=== PATIENT | female | born 1955 | race American Indian/Alaskan Native ===

== ENCOUNTER 2019-04-29 09:52 | Emergency (ER) | payer MEDICAID, OTHER ==
[2019-04-29 10:38] VITALS: BP 176/85
--- NOTE | 2019-04-29 10:48 | XRay Report ---
3 views of the left shoulder INDICATION / CLINICAL INFORMATION: pain. COMPARISON: None available. FINDINGS: BONES/JOINT(S): No acute fracture or subluxation. Mild AC joint DJD. SOFT TISSUES: No significant abnormality. ADDITIONAL FINDINGS: None. Signer Name: Maxwell Harris MD Signed: 04/29/2019 9:44 AM Workstation Name: [id number]
[2019-04-29] MEDS ORDERED: NAPROSYN PO ONE (11:40)
[2019-04-29] MEDS ORDERED: FLEXERIL PO ONE (11:40)
--- NOTE | 2019-04-29 11:45 | Emergency Department Report ---
Upper Extremity - HPI Chief Complaint: Extremity Injury, Upper Stated Complaint: CHEST PAINS Time Seen by Provider: 04/29/19 10:21 Other History: Patient is a 63-year-old female who presents to the emergency room with complaints of left shoulder pain that began 2 months ago. she states occasionally she has a tingling sensation in the fingers. She denies any weakness or chest pain. She denies any fall, injury, or trauma She states it's worse when she lays on it. She does not report any neck pain or back pain. PMHx of DM and HTN. she states her "blood pressure is usually higher than it is today." ED Review of Systems ROS: Stated complaint: CHEST PAINS Other details as noted in HPI Comment: All other systems reviewed and negative ED Past Medical Hx - Past Medical History Previous Medical History?: Yes Hx Hypertension: Yes Hx Diabetes: Yes - Surgical History Past Surgical History?: Yes Hx Cholecystectomy: Yes Additional Surgical History: knee sx, hysterectomy - Social History Smoking Status: Current Some Day Smoker Substance Use Type: Alcohol, Marijuana - Medications Home Medications: Home Medications Medication Instructions Recorded Confirmed Last Taken Type Naproxen [Naprosyn TAB] 500 mg PO TID PRN #14 tablet 04/29/19 Unknown Rx Upper Extremity Exam - Exam General: Vital signs noted. No distress. Alert and acting appropriately. Shoulder Exam: Yes Shoulder Tenderness (mild left posterior shoulder TTP), Yes Normal Range of Motion in Shoulder, No Clavicle Tenderness, No Shoulder Deformity, No AC Joint Tenderness Arm Exam: No Arm/Humerus Tenderness, No Arm Deformity Elbow: Yes Normal Range of Motion in Elbow, No Elbow Tenderness, No Elbow Deformity Forearm: No Forearm Tenderness, No Forearm Deformity, No Pain with Pronation, No Pain with Supination Wrist: Yes Normal ROM in Wrist, No Wrist Tenderness, No Wrist Deformity, No Snuffbox Tenderness, No Pain with Axial Thumb Compression Hand: Yes Normal ROM in Digit(s), No Hand Tenderness, No Hand Deformity, No Digit Tenderness, No Digit(s) Deformity, No Tendon Dysfunction CMS Exam: Yes Normal Distal Pulses, Yes Normal Capillary Refill, Yes Normal Distal Sensation, No Broken Skin ED Course Vital Signs 04/29/19 10:09 Temperature 97.9 F Pulse Rate 76 Respiratory 20 Rate Blood Pressure 176/85 [Right] O2 Sat by Pulse 100 Oximetry ED Medical Decision Making - Radiology Data Radiology results: report reviewed Fluoro Time In Minutes: 3 views of the left shoulder INDICATION / CLINICAL INFORMATION: pain. COMPARISON: None available. FINDINGS: BONES/JOINT(S): No acute fracture or subluxation. Mild AC joint DJD. SOFT TISSUES: No significant abnormality. ADDITIONAL FINDINGS: None. Signer Name: Maxwell Harris MD Signed: 04/29/2019 9:44 AM Workstation Name: [id number] Transcribed By: REF Dictated By: EM OSEGUERA MD Electronically Authenticated By: EM OSEGUERA MD Signed Date/Time: 04/29/19 0944 - Medical Decision Making Patient is a 63-year-old female who presents to the emergency room with complaints of left shoulder pain that began 2 months ago. she states occasionally she has a tingling sensation in the fingers. She denies any weakness or chest pain. She denies any fall, injury, or trauma She states it's worse when she lays on it. She does not report any neck pain or back pain. PMHx of DM and HTN. she states her "blood pressure is usually higher than it is today." on exam: mild left posterior shoulder TTP, FROM of the left shoulder, neurovascular intact, no sulcus sign, clavicles are equal, no joint laxity, no AC joint tenderness. pt discomfort treated while in the ED. XR of the shoulder shows No acute fracture or subluxation. Mild AC joint DJD. pt given prescription for naproxen. advised to \\please take medication as prescribed as needed. may use ice, rest, heat, epsom salt bath. Follow up with a primary care doctor in the next 2-3 days. discuss with your primary care doctor the elevation in your blood pressure. Return to the emergency room for any new or worsening symptoms. - Differential Diagnosis strain, sprain, fx, dislocation, DJD, arthritis Critical care attestation.: If time is entered above; I have spent that time in minutes in the direct care of this critically ill patient, excluding procedure time. ED Disposition Clinical Impression: Elevated blood pressure reading Left shoulder pain Qualifiers: Chronicity: acute Qualified Code(s): M25.512 - Pain in left shoulder Disposition: DC-01 TO HOME OR SELFCARE Is pt being admited?: No Does the pt Need Aspirin: No Condition: Stable Instructions: Osteoarthritis (ED) Additional Instructions: Please take medication as prescribed as needed. may use ice, rest, heat, epsom salt bath. Follow up with a primary care doctor in the next 2-3 days. discuss with your primary care doctor the elevation in your blood pressure. Return to the emergency room for any new or worsening symptoms. Prescriptions: Naproxen [Naprosyn TAB] 500 mg PO TID PRN #14 tablet PRN Reason: Pain, Moderate (4-6) Referrals: GREGORY THOMPSON MD [Primary Care Provider] - 2-3 Days Time of Disposition: 11:46 Print Language: CYMRAES
== END 2019-04-29 12:03 | disposition home or self-care (01) ==
LOC: ED 09:52
DX: M25.512 Pain in left shoulder (principal); I10 Essential (primary) hypertension; E11.9 Type 2 diabetes mellitus without complications; F17.200 Nicotine dependence, unspecified, uncomplicated; F12.10 Cannabis abuse, uncomplicated; Z90.710 Acquired absence of both cervix and uterus; Z90.49 Acquired absence of other specified parts of digestive tract; Z88.2 Allergy status to sulfonamides
CPT/HCPCS: 99283

== ENCOUNTER 2019-05-02 21:53 | Emergency (ER) | payer SELFPAY ==
[2019-05-02 23:02] VITALS: BP 183/90
== END 2019-05-03 03:00 | disposition left against medical advice (07) ==
LOC: ED 21:53
DX: M79.602 Pain in left arm (principal); Z53.21 Procedure and treatment not carried out due to patient leaving prior to being seen by health care provider
CPT/HCPCS: 93005; 93010

== ENCOUNTER 2021-04-13 05:01 | Observation (INO) | payer MEDICAID, MEDICARE ==
[2021-04-13] MEDS ORDERED: ASPIRIN 325 MG TAB PO ONE (05:49)
[2021-04-13 06:01] LABS: Basophils # (Auto) 0.1 K/mm3 (0.0-0.1); Basophils % (Auto) 0.7 % (0.0-1.8); Eosinophils # (Auto) 0.4 K/mm3 (0.0-0.4); Eosinophils % (Auto) 3.4 % (0.0-4.3); Hemoglobin 11.3 gm/dl (10.1-14.3); Lymphocytes # (Auto) 1.8 K/mm3 (1.2-5.4); Lymphocytes % (Auto) 17.4 % (13.4-35.0); Mean Corpuscular HGB Conc 35 % (30-34); Mean Corpuscular Volume 95 fl (79-97); Monocytes # (Auto) 0.7 K/mm3 (0.0-0.8); Monocytes % (Auto) 6.9 % (0.0-7.3); Platelet Count 344 K/mm3 (140-440); Red Blood Count 3.35 M/mm3 (3.65-5.03)
[2021-04-13] MEDS ORDERED: DOXYCYCLINE 100 MG CAP PO ONE (06:17)
[2021-04-13] MEDS ORDERED: ACETAMINOPHEN 500 MG TAB PO ONE (06:17)
[2021-04-13] MEDS ORDERED: IPRATROPIUM/ALBUTEROL SULFATE 3 ML AMPUL.NEB IH ONE (06:17)
--- NOTE | 2021-04-13 06:23 | Emergency Department Report ---
ED Shortness of Breath HPI - General Chief Complaint: Chest Pain Stated Complaint: SOB/CP/SPITTING BLOOD/POST COVID VACCINE Time Seen by Provider: 04/13/21 06:10 Source: patient Mode of arrival: Ambulatory Limitations: No Limitations - History of Present Illness Initial Comments: Chief complaint: Palpitations, productive cough, generalized pain body ache after taking Covid vaccine " I just feel so bad." HPI: This is a 65-year-old female with history of pancreatitis, hypertension, diabetes mellitus, CHF asthma/bronchitis, tobacco dependence who presents with shortness of breath productive cough, generalized body pain after Covid vaccine last . Symptoms became worse last night. 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 She has mild to moderate headache. She denies loss of taste or smell. She has had good appetite. Patient's body pain is severe and diffuse. Patient's cough is productive with yellow bloody sputum. She also has subjective fever and chills. She lives with family members. No sick contacts known. Last was the first vaccine dose of Moderna. Started new job last Saturday. Patient is a former 1 pack/day smoker. She currently smokes 2 cigarettes/day. Home albuterol nebulizer did not provide any relief of her symptoms. PCP Daniel LANG Complaint: shortness of breath, cough, anxiety (Fever chills generalized body aches) -: Gradual, days(s) (Several days ago worse last night) Severity: moderate Quality: aching Consistency: constant Improves With: oxygen Worsens With: nothing Known History Of: asthma Associated Symptoms: fever, cough, sputum production - Related Data Home Medications Medication Instructions Recorded Confirmed Last Taken Multivitamin [One-Daily 1 each PO QDAY 04/13/21 04/13/21 Unknown Multi-Vitamin] Oxycodone HCl/Acetaminophen 1 each PO Q6HR PRN 04/13/21 04/13/21 Unknown [Percocet 7.5/325 mg] Sertraline [Zoloft] 50 mg PO QDAY 04/13/21 04/13/21 Unknown Simvastatin 40 mg PO QHS 04/13/21 04/13/21 Unknown Ubidecarenone [Coenzyme Q-10] 200 mg PO QDAY 04/13/21 04/13/21 Unknown hydroCHLOROthiazide [HCTZ] 25 mg PO QDAY 04/13/21 04/13/21 Unknown labetaloL [Labetalol 200mg TAB] 200 mg PO BID 04/13/21 04/13/21 Unknown Previous Rx's Medication Instructions Recorded Last Taken Type Albuterol Sulfate [Proventil Hfa] 6.7 gm IH Q4H PRN #1 hfa.aer.ad 04/14/21 Unknown Rx Montelukast [Singulair] 10 mg PO QHS #30 tablet 04/14/21 Unknown Rx methylPREDNISolone [Medrol 4MG 4 mg PO DAILY #1 tab.ds.pk 04/14/21 Unknown Rx DOSEPAK (21 tabs)] oxyCODONE /ACETAMINOPHEN [Percocet 1 tab PO Q6H PRN #14 tablet 04/14/21 Unknown Rx 5/325 mg] Allergies Allergy/AdvReac Type Severity Reaction Status Date / Time Sulfa (Sulfonamide Allergy Swelling Verified 04/29/19 10:09 Antibiotics) ED Review of Systems ROS: Stated complaint: SOB/CP/SPITTING BLOOD/POST COVID VACCINE Other details as noted in HPI Comment: All other systems reviewed and negative Constitutional: chills, fever ENT: denies: throat pain Respiratory: cough, shortness of breath Cardiovascular: denies: chest pain Gastrointestinal: denies: abdominal pain, nausea, vomiting ED Past Medical Hx - Past Medical History Previous Medical History?: Yes Hx Hypertension: Yes Hx Congestive Heart Failure: Yes (december 2018) Hx Diabetes: Yes Additional medical history: pancreatitis 2017 - Surgical History Past Surgical History?: Yes Hx Cholecystectomy: Yes Additional Surgical History: knee sx, hysterectomy - Family History Family history: hypertension - Social History Smoking Status: Heavy Tobacco Smoker Substance Use Type: None - Medications Home Medications: Home Medications Medication Instructions Recorded Confirmed Last Taken Type Multivitamin [One-Daily 1 each PO QDAY 04/13/21 04/13/21 Unknown History Multi-Vitamin] Oxycodone HCl/Acetaminophen 1 each PO Q6HR PRN 04/13/21 04/13/21 Unknown History [Percocet 7.5/325 mg] Sertraline [Zoloft] 50 mg PO QDAY 04/13/21 04/13/21 Unknown History Simvastatin 40 mg PO QHS 04/13/21 04/13/21 Unknown History Ubidecarenone [Coenzyme Q-10] 200 mg PO QDAY 04/13/21 04/13/21 Unknown History hydroCHLOROthiazide [HCTZ] 25 mg PO QDAY 04/13/21 04/13/21 Unknown History labetaloL [Labetalol 200mg TAB] 200 mg PO BID 04/13/21 04/13/21 Unknown History Albuterol Sulfate [Proventil Hfa] 6.7 gm IH Q4H PRN #1 hfa.aer.ad 04/14/21 Unknown Rx Montelukast [Singulair] 10 mg PO QHS #30 tablet 04/14/21 Unknown Rx methylPREDNISolone [Medrol 4MG 4 mg PO DAILY #1 tab.ds.pk 04/14/21 Unknown Rx DOSEPAK (21 tabs)] oxyCODONE /ACETAMINOPHEN [Percocet 1 tab PO Q6H PRN #14 tablet 04/14/21 Unknown Rx 5/325 mg] ED Physical Exam - General Limitations: No Limitations General appearance: alert, anxious, other (Speaking full word sentences with significant effort, appears ill ) - Head Head exam: Present: atraumatic, normocephalic - Eye Eye exam: Present: normal appearance - ENT ENT exam: Present: mucous membranes moist - Neck Neck exam: Present: normal inspection, full ROM - Respiratory Respiratory exam: Present: rales (Diffuse fine rales), other (Rapid breathing 28 breaths/min). Absent: wheezes, rhonchi, stridor, accessory muscle use, decreased breath sounds, prolonged expiratory - Cardiovascular Cardiovascular Exam: Present: normal rhythm, tachycardia. Absent: systolic murmur, diastolic murmur, rubs, gallop - GI/Abdominal GI/Abdominal exam: Present: soft, normal bowel sounds. Absent: distended, tenderness, guarding, rebound - Extremities Exam Extremities exam: Present: normal inspection - Neurological Exam Neurological exam: Present: alert, oriented X3 - Psychiatric Psychiatric exam: Present: normal affect, anxious - Skin Skin exam: Present: warm, dry, intact, normal color. Absent: rash ED Course Vital Signs 04/13/21 04/13/21 04/13/21 05:42 06:16 06:24 Temperature 98.4 F Pulse Rate 109 H 104 H 108 H Pulse Rate [ Bilateral] Respiratory 20 22 Rate Respiratory Rate [Bilateral ] Blood Pressure 238/121 238/119 Blood Pressure 238/119 [Left] O2 Sat by Pulse 100 96 Oximetry 0604/13/21 04/13/21 06:36 07:00 08:00 Temperature Pulse Rate 84 Pulse Rate [ 85 Bilateral] Respiratory 35 H Rate Respiratory 22 Rate [Bilateral ] Blood Pressure 223/115 205/109 Blood Pressure [Left] O2 Sat by Pulse 96 87 Oximetry 04/13/21 04/13/21 04/13/21 08:30 08:46 09:16 Temperature Pulse Rate 86 81 81 Pulse Rate [ Bilateral] Respiratory 21 12 19 Rate Respiratory Rate [Bilateral ] Blood Pressure 213/94 210/99 208/93 Blood Pressure [Left] O2 Sat by Pulse 96 97 91 Oximetry 04/13/21 04/13/21 04/13/21 09:30 09:46 10:16 Temperature Pulse Rate 78 81 80 Pulse Rate [ Bilateral] Respiratory 23 19 19 Rate Respiratory Rate [Bilateral ] Blood Pressure 217/103 217/103 188/85 Blood Pressure [Left] O2 Sat by Pulse 97 93 90 Oximetry 04/13/21 04/13/21 04/13/21 10:46 11:00 11:10 Temperature Pulse Rate 77 75 76 Pulse Rate [ Bilateral] Respiratory 20 19 19 Rate Respiratory Rate [Bilateral ] Blood Pressure 181/90 186/89 186/89 Blood Pressure [Left] O2 Sat by Pulse 94 95 95 Oximetry 04/13/21 12:16 Temperature 98.3 F Pulse Rate 80 Pulse Rate [ Bilateral] Respiratory 20 Rate Respiratory Rate [Bilateral ] Blood Pressure 180/86 Blood Pressure [Left] O2 Sat by Pulse 92 Oximetry ED Medical Decision Making - Lab Data Result diagrams: 04/13/21 05:53 04/14/21 07:15 - EKG Data -: EKG Interpreted by Nh EKG shows normal: sinus rhythm, axis, intervals Rate: tachycardia - EKG Data Interpretation: nonspecific ST-T wave kallie, LVH 04/13/21 06:22 EKG obtained 0533 EKG interpreted by md Sinus tachycardia rate 110 bpm normal axis prolonged QTC positive LVH nonischemic T wave pattern no significant ST elevation - Radiology Data Radiology results: report reviewed Patient Name: BRIAN KRAUS Gender: Female Date of : 1955 Referring Provider: JESSE KNIGHT Organization: [facility] Accession Number: [id number] Requested Date: April 13, 2021 05:49 Report Status: Final Requested Procedure: 1 Procedure Description: XR chest 1V ap Modality: XR Findings Reporting MD: Genesis Alvarez Dictation Time: April 13, 2021 05:34 Core Feeder: Not available Solution Developer Date: CHEST 1 VIEW, 04/13/2021 5:59 AM CLINICAL INFORMATION/INDICATION: Chest pain COMPARISON: None. FINDINGS: SUPPORT DEVICES: None. HEART: The cardiac silhouette is moderately enlarged. LUNGS/PLEURA: There are faint bilateral patchy pulmonary opacities, right slightly greater than left. No large pleural effusion is visualized. ADDITIONAL FINDINGS: No additional acute findings. IMPRESSION: 1. Patchy bilateral pulmonary opacities. Diagnostic considerations would include early pulmonary edema or atypical infectious process. 2. Enlargement of the cardiac silhouette. Signer Name: Genesis Alvarez MD Signed: 04/13/2021 5:34 AM Workstation Name: [id number] - Medical Decision Making 1. Suspected Covid 19 infection, multifocal pneumonia: Patient received IV ceftriaxone and p.o. doxycycline emergency department. Also received IV Decadron. PUI contact and droplet precautions instituted in emergency department. Ferritin and CRP within normal limits D-dimer elevated 2. Hypertensive urgency, rebound hypertension due to missed Clonidine dose, addressed with p.o. labetalol no evidence of end organ damage, 3. History of CHF, elevated BNP without baseline to compare. Patient does have infectious symptoms such as fever chills productive cough, body aches. I feel that her presentation reveals an infectious etiology more so than cardiac. - Differential Diagnosis CHF exacerbation, bacterial pneumonia, acute bronchitis/COPD exacerbation Critical care attestation.: If time is entered above; I have spent that time in minutes in the direct care of this critically ill patient, excluding procedure time. ED Disposition Clinical Impression: Multifocal pneumonia, Suspected COVID-19 virus infection, Hypertensive urgency Disposition: OP ADMIT IP TO THIS HOSP Is pt being admited?: Yes Does the pt Need Aspirin: No Condition: Stable
[2021-04-13 06:26] LABS: Albumin 4.2 g/dL (3.9-5); Calcium 9.4 mg/dL (8.4-10.2)
--- NOTE | 2021-04-13 06:38 | XRay Report ---
CHEST 1 VIEW, 04/13/2021 5:59 AM CLINICAL INFORMATION/INDICATION: Chest pain COMPARISON: None. FINDINGS: SUPPORT DEVICES: None. HEART: The cardiac silhouette is moderately enlarged. LUNGS/PLEURA: There are faint bilateral patchy pulmonary opacities, right slightly greater than left. No large pleural effusion is visualized. ADDITIONAL FINDINGS: No additional acute findings. IMPRESSION: 1. Patchy bilateral pulmonary opacities. Diagnostic considerations would include early pulmonary jose luis a or atypical infectious process. 2. Enlargement of the cardiac silhouette. Signer Name: Genesis Alvarez MD Signed: 04/13/2021 6:34 AM Workstation Name: [id number]
[2021-04-13] MEDS ORDERED: FLUCONAZOLE 200 MG TAB PO ONE (06:49)
[2021-04-13] MEDS ORDERED: cefTRIAXone/NS 1 GM/50 ML 1 GM/50 ML BAG IV ONE (06:56)
[2021-04-13] MEDS ORDERED: dexAMETHasone 20 MG/5 ML VIAL IV ONE (07:01)
[2021-04-13] MEDS ORDERED: IBUPROFEN 800 MG TAB PO ONE (07:32)
[2021-04-13] MEDS ORDERED: cloNIDine 0.2 MG TAB PO ONE (08:11)
[2021-04-13 09:06] LABS: C-Reactive Protein 1.1 mg/dL (0.00-1.30)
[2021-04-13] MEDS ORDERED: MORPHINE 4 MG/1 ML INJ IV ONE (09:14)
[2021-04-13] MEDS ORDERED: ONDANSETRON 4 MG/2 ML INJ IV ONE (09:14)
[2021-04-13] MEDS ORDERED: NON-FORMULARY EACH (Oxycodone Hcl/Acetaminophen [Percocet 7.5/325 Mg] 1 EACH Tablet) PO PRN (10:30)
[2021-04-13] MEDS ORDERED: DEXTROSE 50% IN WATER (25GM) 50 ML SYRINGE IV PRN (10:31)
[2021-04-13] MEDS ORDERED: ALBUTEROL 2.5 MG/3 ML NEBU IH PRN (10:32)
--- NOTE | 2021-04-13 10:54 | History and Physical Report ---
History of Present Illness Date of examination: 04/13/21 Date of admission: 04/13/21 09:11 Chief complaint: Shortness of breath History of present illness: 65-year-old -[place] female with past medical history significant for hypertension, diabetes mellitus, asthma, tobacco use presented to the emergency department with complaints of shortness of breath that started a week ago after she took her Covid shot. Shortness of breath is progressively getting worse and for the past 2 days patient was not able to breath and presented to the emergency department. Patient said she was taking her albuterol inhaler without improvement. Patient states she has cough which is productive of blood mixed with sputum. Patient denied any fever, chills, or chest pain. In the emergency department patient's blood pressure was uncontrolled, patient had elevated D-dimer, patient has abnormal chest x-ray. Patient was started with IV antibiotics, IV Solu-Medrol, nebulizer treatment. CTA chest ordered, Doppler ultrasound of the lower extremities ordered. ID was consulted and patient admitted to the floor. COVID-19 test ordered. REVIEW OF SYSTEMS: GENERAL: no weight change, no fatigue, no fever HEAD: no head ache EYES: no blurry vision, no acute visual loss EARS: no hearing loss, no discharge, no earache NOSE: no stuffiness, no sneezing, no discharge MOUTH, THROAT AND NECK: no bleeding gums, no sore throat, no swollen neck CARDIAC: As stated in HPI. RESPIRATORY: As stated in HPI. GI: no decreased appetite, no nausea, no vomiting, no dysphagia, no diarrhea, no constipation, no abdominal pain URINARY: No urgency, hematuria, dysuria or frequency. MUSCULOSKELETAL: no muscle weakness, no pain, no joint stiffness NEUROLOGIC: no loss of sensation/numbness, no tingling, no tremors, no weakness/paralysis HEMATOLOGIC: no anemia, no easy bruising SKIN: no rashes ENDOCRINE: no heat/cold intolerance, no polyuria, no polydipsia, no thyroid problems PSYCHIATRIC: no anxiety, no depression, no suicidal ideations Past History Past Medical History: arthritis, diabetes, hypertension Past Surgical History: hysterectomy, total knee replacement Social history: smoking (Daily smoker), full code. denies: alcohol abuse, prescription drug abuse, IV drug use Family history: diabetes, hypertension Medications and Allergies Allergies Allergy/AdvReac Type Severity Reaction Status Date / Time Sulfa (Sulfonamide Allergy Swelling Verified 04/29/19 10:09 Antibiotics) Home Medications Medication Instructions Recorded Confirmed Last Taken Type Multivitamin [One-Daily 1 each PO QDAY 04/13/21 04/13/21 Unknown History Multi-Vitamin] Oxycodone HCl/Acetaminophen 1 each PO Q6HR PRN 04/13/21 04/13/21 Unknown History [Percocet 7.5/325 mg] Sertraline [Zoloft] 50 mg PO QDAY 04/13/21 04/13/21 Unknown History Simvastatin 40 mg PO QHS 04/13/21 04/13/21 Unknown History Ubidecarenone [Coenzyme Q-10] 200 mg PO QDAY 04/13/21 04/13/21 Unknown History hydroCHLOROthiazide [HCTZ] 25 mg PO QDAY 04/13/21 04/13/21 Unknown History labetaloL [Labetalol 200mg TAB] 200 mg PO BID 04/13/21 04/13/21 Unknown History Active Meds: Active Medications Albuterol (Albuterol 2.5 Mg/3 Ml Nebu) 2.5 mg IH Q4HRT PRN PRN Reason: Shortness Of Breath Clonidine HCl (Clonidine 0.2 Mg Tab) 0.2 mg PO Q12HR ROSLYN Dextrose (Dextrose 50% In Water (25gm) 50 Ml Syringe) 50 ml IV Q30MIN PRN; Protocol PRN Reason: Hypoglycemia Hydrochlorothiazide (Hydrochlorothiazide 25 Mg Tab) 25 mg PO QDAY ROSLYN Ceftriaxone Sodium (Rocephin/Ns 2 Gm/100 Ml) 2 gm in 100 mls @ 200 mls/hr IV Q24H ROSLYN; Protocol Azithromycin (Zithromax/Ns) 500 mg in 250 mls @ 250 mls/hr IV Q24H ROSLYN Insulin Glargine (Insulin Glargine 100 Units/Ml) 30 units SUB-Q BID ROSLYN Labetalol HCl (Labetalol 200 Mg Tab) 200 mg PO BID ROSLYN Methylprednisolone Sodium Succinate (Methylprednisolone Sod Succinate 125 Mg/2 Ml Inj) 60 mg IV Q8HR ROSLYN Miscellaneous Medication (Simvastatin [Simvastatin]) 40 mg PO QHS [facility] Miscellaneous Medication (Oxycodone Hcl/Acetaminophen [Percocet 7.5/325 Mg]) 1 each PO Q6HR PRN PRN Reason: PAIN Montelukast Sodium (Montelukast 10 Mg Tab) 10 mg PO QHS ROSLYN Nicotine (Nicotine 21 Mg/24 Hr Patch) 21 mg TD QDAY ROSLYN Sertraline HCl (Sertraline 50 Mg Tab) 50 mg PO QDAY ROSLYN Exam - Physical Exam Narrative exam: Not in cardiopulmonary distress. The patient appeared well nourished and normally developed. Vital signs as documented. Head exam is unremarkable. No scleral icterus . Neck is without jugular venous distension, thyromegaly, or carotid bruits. Lungs are clear to auscultation. Cardiac exam reveals regular rate and Rhythm. Abdominal exam reveals normal bowel sounds, nontender, no organomegaly. Extremities are nonedematous and both femoral and pedal pulses are normal. [employer]: Alert and oriented 3. No focal weakness. - Constitutional Vitals: Temp Pulse Resp BP Pulse Ox 98.4 F 81 19 208/93 91 04/13/21 05:42 04/13/21 09:16 04/13/21 09:16 04/13/21 09:16 04/13/21 09:16 HEART Score - HEART Score Troponin: Troponin T 0.014 ng/mL (0.00-0.029) 04/13/21 05:53 Results - Labs CBC & Chem 7: 04/13/21 05:53 04/13/21 07:15 Labs: Laboratory Last Values WBC 10.5 K/mm3 (4.5-11.0) 04/13/21 05:53 RBC 3.35 M/mm3 (3.65-5.03) L 04/13/21 05:53 Hgb 11.3 gm/dl (10.1-14.3) 04/13/21 05:53 Hct 32.0 % (30.3-42.9) 04/13/21 05:53 MCV 95 fl (79-97) 04/13/21 05:53 MCH 34 pg (28-32) H 04/13/21 05:53 MCHC 35 % (30-34) H 04/13/21 05:53 RDW 15.0 % (13.2-15.2) 04/13/21 05:53 Plt Count 344 K/mm3 (140-440) 04/13/21 05:53 Lymph % (Auto) 17.4 % (13.4-35.0) 04/13/21 05:53 [place] % (Auto) 6.9 % (0.0-7.3) 04/13/21 05:53 Eos % (Auto) 3.4 % (0.0-4.3) 04/13/21 05:53 Baso % (Auto) 0.7 % (0.0-1.8) 04/13/21 05:53 Lymph # (Auto) 1.8 K/mm3 (1.2-5.4) 04/13/21 05:53 [place] # (Auto) 0.7 K/mm3 (0.0-0.8) 04/13/21 05:53 Eos # (Auto) 0.4 K/mm3 (0.0-0.4) 04/13/21 05:53 Baso # (Auto) 0.1 K/mm3 (0.0-0.1) 04/13/21 05:53 Seg Neutrophils % 71.6 % (40.0-70.0) H 04/13/21 05:53 Seg Neutrophils # 7.5 K/mm3 (1.8-7.7) 04/13/21 05:53 D-Dimer 1820.81 ng/mlDDU (0-234) H 04/13/21 07:15 Sodium 144 mmol/L (137-145) 04/13/21 05:53 Potassium 4.0 mmol/L (3.6-5.0) 04/13/21 05:53 Chloride 105.3 mmol/L (98-107) 04/13/21 05:53 Carbon Dioxide 28 mmol/L (22-30) 04/13/21 05:53 Anion Gap 15 mmol/L 04/13/21 05:53 BUN 15 mg/dL (7-17) 04/13/21 05:53 Creatinine 1.2 mg/dL (0.6-1.2) 04/13/21 05:53 Estimated GFR 55 ml/min 04/13/21 05:53 BUN/Creatinine Ratio 13 % 04/13/21 05:53 Glucose 178 mg/dL (65-100) H 04/13/21 07:15 Calcium 9.4 mg/dL (8.4-10.2) 04/13/21 05:53 Ferritin 167.8 ng/mL (10.0-200.0) 04/13/21 07:15 Total Bilirubin 0.50 mg/dL (0.1-1.2) 04/13/21 05:53 AST 22 units/L (5-40) 04/13/21 05:53 ALT 16 units/L (7-56) 04/13/21 05:53 Alkaline Phosphatase 88 units/L (35-129) 04/13/21 05:53 Lactate Dehydrogenase 300 units/L (91-180) H 04/13/21 07:15 Troponin T 0.014 ng/mL (0.00-0.029) 04/13/21 05:53 C-Reactive Protein 1.10 mg/dL (0.00-1.30) 04/13/21 07:15 NT-Pro-B Natriuret Pep 3520 pg/mL (0-900) H 04/13/21 07:15 Total Protein 6.9 g/dL (6.3-8.2) 04/13/21 05:53 Albumin 4.2 g/dL (3.9-5) 04/13/21 05:53 Albumin/Globulin Ratio 1.6 % 04/13/21 05:53 Assessment and Plan Assessment and plan: Acute respiratory failure -Patient was placed on Solu-Medrol, nebulizer treatment and oxygen support -We will continue to monitor Asthma exacerbation -Management as stated above Covid pneumonia versus bacterial pneumonia -Patient is on IV antibiotics -IV Solu-Medrol -ID consulted Elevated D-dimer -CTA chest and bilateral Doppler ultrasound of the lower extremities ordered Hypertensive urgency -Patient placed back on her home medications including clonidine Diabetes mellitus -Resume home dose of Lantus 30 units twice daily -Sliding scale insulin, ADA diet and adjust insulin as needed History of CHF -We will do echo DVT prophylaxis; on Lovenox CODE STATUS; full Disposition; admit to medical floor. Management plan was discussed with the patient and was in agreement with the plan of care. Advance Directives: Yes VTE prophylaxis?: Chemical Plan of care discussed with patient/family: Yes
[2021-04-13] MEDS ORDERED: cefTRIAXone/NS 2 GM/100 ML 2 GM/100 ML BAG IV SCH (11:00)
--- NOTE | 2021-04-13 11:47 | Consultation ---
History of Present Illness - Reason for Consult Consult date: 04/13/21 - History of Present Illness 55-year-old female past medical history hypertension, diabetes, asthma presented to hospital complaining of shortness of breath. She reports this began approximate week prior after receiving her Covid shot. Shortness of breath has been getting progressively worse, as as she presented to the hospital. She also complained of productive cough with bloody sputum. Otherwise denies any fevers, chills, chest pain. Afebrile since admission with a white count of 10.5. Covid PCR pending. Keke mated GFR is 55, pending procalcitonin. Normal inflammatory markers. No cultures available for review. She is currently on ceftriaxone and azithromycin. Imaging personally reviewed: Chest CTA: Patchy bilateral pulmonary opacities, edema versus infection. Review of systems: Deferred to reduce to the risk of transmission of COVID-19 Past History Past Medical History: arthritis, diabetes, hypertension Past Surgical History: hysterectomy, total knee replacement Social history: smoking (Daily smoker), full code. denies: alcohol abuse, prescription drug abuse, IV drug use Family history: diabetes, hypertension Medications and Allergies Allergies Allergy/AdvReac Type Severity Reaction Status Date / Time Sulfa (Sulfonamide Allergy Swelling Verified 04/29/19 10:09 Antibiotics) Home Medications Medication Instructions Recorded Confirmed Last Taken Type Multivitamin [One-Daily 1 each PO QDAY 04/13/21 04/13/21 Unknown History Multi-Vitamin] Oxycodone HCl/Acetaminophen 1 each PO Q6HR PRN 04/13/21 04/13/21 Unknown History [Percocet 7.5/325 mg] Sertraline [Zoloft] 50 mg PO QDAY 04/13/21 04/13/21 Unknown History Simvastatin 40 mg PO QHS 04/13/21 04/13/21 Unknown History Ubidecarenone [Coenzyme Q-10] 200 mg PO QDAY 04/13/21 04/13/21 Unknown History hydroCHLOROthiazide [HCTZ] 25 mg PO QDAY 04/13/21 04/13/21 Unknown History labetaloL [Labetalol 200mg TAB] 200 mg PO BID 04/13/21 04/13/21 Unknown History Active Meds: Active Medications Albuterol (Albuterol 2.5 Mg/3 Ml Nebu) 2.5 mg IH Q4HRT PRN PRN Reason: Shortness Of Breath Clonidine HCl (Clonidine 0.2 Mg Tab) 0.2 mg PO Q12HR ROSLYN Dextrose (Dextrose 50% In Water (25gm) 50 Ml Syringe) 50 ml IV Q30MIN PRN; Protocol PRN Reason: Hypoglycemia Enoxaparin Sodium (Enoxaparin 40 Mg/0.4 Ml Inj) 40 mg SUB-Q QDAY@2200 ROSLYN; Protocol Hydrochlorothiazide (Hydrochlorothiazide 25 Mg Tab) 25 mg PO QDAY ROSLYN Ceftriaxone Sodium (Rocephin/Ns 2 Gm/100 Ml) 2 gm in 100 mls @ 200 mls/hr IV Q24H ROSLYN; Protocol Azithromycin (Zithromax/Ns) 500 mg in 250 mls @ 250 mls/hr IV Q24H ROSLYN Insulin Glargine (Insulin Glargine 100 Units/Ml) 30 units SUB-Q BID ROSLYN Labetalol HCl (Labetalol 200 Mg Tab) 200 mg PO BID ROSLYN Methylprednisolone Sodium Succinate (Methylprednisolone Sod Succinate 125 Mg/2 Ml Inj) 60 mg IV Q8HR ROSLYN Miscellaneous Medication (Simvastatin [Simvastatin]) 40 mg PO QHS ROSLYN Miscellaneous Medication (Oxycodone Hcl/Acetaminophen [Percocet 7.5/325 Mg]) 1 each PO Q6HR PRN PRN Reason: PAIN Montelukast Sodium (Montelukast 10 Mg Tab) 10 mg PO QHS ROSLYN Nicotine (Nicotine 21 Mg/24 Hr Patch) 21 mg TD QDAY ROSLYN Sertraline HCl (Sertraline 50 Mg Tab) 50 mg PO QDAY ROSLYN Physical Examination - Physical Exam Narrative exam: Physical exam deferred to reduce risk of transmission of COVID-19. Please refer to primary team's note. - Constitutional Vitals: Vital Signs Temp Pulse Resp BP Pulse Ox 98.4 F 75 19 186/89 95 04/13/21 05:42 04/13/21 11:00 04/13/21 11:00 04/13/21 11:00 04/13/21 11:00 Temperature -Last 24 Hours Temperature 98.4 F Results - Labs CBC & Chem 7: 04/13/21 05:53 04/13/21 07:15 Labs: Abnormal lab results 04/13/21 04/13/21 04/13/21 Range/Units 05:53 05:53 07:15 RBC 3.35 L (3.65-5.03) M/mm3 MCH 34 H (28-32) pg MCHC 35 H (30-34) % Seg Neutrophils % 71.6 H (40.0-70.0) % D-Dimer 1820.81 H (0-234) ng/mlDDU Glucose 168 H (65-100) mg/dL Lactate Dehydrogenase (91-180) units/L NT-Pro-B Natriuret Pep (0-900) pg/mL 04/13/21 04/13/21 Range/Units 07:15 07:15 RBC (3.65-5.03) M/mm3 MCH (28-32) pg MCHC (30-34) % Seg Neutrophils % (40.0-70.0) % D-Dimer (0-234) ng/mlDDU Glucose 178 H (65-100) mg/dL Lactate Dehydrogenase 300 H (91-180) units/L NT-Pro-B Natriuret Pep 3520 H (0-900) pg/mL Assessment and Plan Cultures: Covid PCR: Pending A/P: 65 yo Female past medical history hypertension, diabetes presented to hospital as Covid PUI. #Covid PUI: Normal inflammatory markers, episodes of hypoxia. Moderate suspicion. Received first dose Covid testing last week approximately the time of symptom onset. May have been infected prior to receiving medication. Await PCR. #Shortness of breath: Pulmonary edema versus infection. Elevated BNP with nonspecific chest x-ray findings. Elevated D-dimer, awaiting chest CTA. #Diabetes: tight glycemic control for best outcomes. Recs: -Follow-up Covid PCR -If positive will start remdesivir -Follow-up procalcitonin, if less than 0.25 can stop antibiotics -Follow-up chest CTA. Thank you for the consult, we will continue to follow. Natalie Badillo MD [facility] ([facility] O: [phone] F: [phone]
[2021-04-13] MEDS: SERTRALINE 50 MG TAB PO SCH (12:32)
[2021-04-13] MEDS: hydroCHLOROthiazide 25 MG TAB PO SCH (12:32)
[2021-04-13] MEDS ORDERED: AZITHROMYCIN/NS 500 MG/250 ML 500 MG/250 ML BAG IV SCH (13:00)
--- NOTE | 2021-04-13 13:21 | Cat Scan Report ---
CTA CHEST WITH CONTRAST INDICATION : suspected pe 100 ml omni 350 . TECHNIQUE: Axial imaging performed through the chest, with contrast bolus timing set to maximize opa cification of the pulmonary arteries. Sagittal and coronal reformatted images. 3-plane MIP reformatte d images were obtained. All CT scans at this location are performed using CT dose reduction for ALAR A by means of automated exposure control. 100 mL of intravenous contrast administered. COMPARISON: None FINDINGS: Bolus: Contrast bolus timing is adequate. PTE: No filling defect is present to suggest PTE. Mediastinum: Mild cardiomegaly and small pericardial effusion are identified. The aorta is unremarka ble. No pathologic mediastinal adenopathy. Lungs: Moderate bilateral perihilar infiltrates are identified which probably represents pulmonary e herb. Small layering pleural effusions are identified, right greater than left. Mild centrilobular em physematous changes are suspected in the upper lobes. No mass. No pneumothorax. Bones: Degenerative changes in the spine with nothing acute. Upper abdomen: Limited imaging of the upper abdomen shows nothing acute. IMPRESSION: No evidence for pulmonary embolus. Mild CHF. Signer Name: Ron Adame Jr, MD Signed: 04/13/2021 1:17 PM Workstation Name: [id number]
[2021-04-13] MEDS: methylPREDNISolone Sod Succinate 125 MG/2 ML INJ IV SCH ×2 (13:49→23:11)
[2021-04-13] MEDS: NICOTINE 21 MG/24 HR PATCH TD SCH (13:49)
[2021-04-13] MEDS: oxyCODONE /ACETAMINOPHEN 5-325MG TAB PO PRN (20:33)
[2021-04-13] MEDS: oxyCODONE 5 MG TAB PO PRN (20:34)
[2021-04-13] MEDS ORDERED: ENOXAPARIN 40 MG/0.4 ML INJ SUB-Q SCH (22:00)
[2021-04-13] MEDS ORDERED: PRAVASTATIN 80 MG TAB PO SCH (22:00)
[2021-04-13] MEDS ORDERED: MONTELUKAST 10 MG TAB PO SCH (22:00)
[2021-04-13] MEDS ORDERED: NON-FORMULARY EACH (Simvastatin [Simvastatin] 40 MG Tablet) PO SCH (22:00)
[2021-04-13] MEDS: INSULIN LISPRO 100 UNIT/ML SUB-Q SCH (23:11)
[2021-04-13] MEDS: INSULIN GLARGINE 100 UNITS/ML SUB-Q SCH (23:11)
[2021-04-13] MEDS: cloNIDine 0.2 MG TAB PO SCH (23:12)
[2021-04-14] MEDS: oxyCODONE 5 MG TAB PO PRN ×3 (02:26→16:22)
[2021-04-14] MEDS: oxyCODONE /ACETAMINOPHEN 5-325MG TAB PO PRN ×3 (02:27→16:22)
[2021-04-14] MEDS: methylPREDNISolone Sod Succinate 125 MG/2 ML INJ IV SCH ×2 (05:35→13:13)
[2021-04-14] MEDS ORDERED: FUROSEMIDE 40 MG/4 ML INJ IV ONE (09:05)
--- NOTE | 2021-04-14 09:05 | Progress Note ---
Assessment and Plan Assessment and plan: Acute respiratory failure -Patient was placed on Solu-Medrol, nebulizer treatment and oxygen support -We will continue to monitor Asthma exacerbation -Management as stated above Covid pneumonia versus bacterial pneumonia -Patient is on IV antibiotics -IV Solu-Medrol -ID consulted Elevated D-dimer -CTA chest and bilateral Doppler ultrasound of the lower extremities ordered Hypertensive urgency -Patient placed back on her home medications including clonidine Diabetes mellitus -Resume home dose of Lantus 30 units twice daily -Sliding scale insulin, ADA diet and adjust insulin as needed History of CHF -We will do echo DVT prophylaxis; on Lovenox CODE STATUS; full Disposition; admit to medical floor. Management plan was discussed with the patient and was in agreement with the plan of care. 04/14/2021 CTA was done negative for PE, significant for mild CHF. Procalcitonin level was low and IV antibiotics discontinued COVID-19 test is still pending Patient's home medications restarted; blood pressure is uncontrolled. And after she took her home medications if it is still high will adjust blood pressure medications. Echo was done and reading is pending. History Interval history: Patient was seen and evaluated this morning Shortness of breath is getting better COVID-19 test is still pending Hospitalist Physical - Physical exam Narrative exam: Not in cardiopulmonary distress. The patient appeared well nourished and normally developed. Vital signs as documented. Head exam is unremarkable. No scleral icterus . Neck is without jugular venous distension, thyromegaly, or carotid bruits. Lungs are clear to auscultation. Cardiac exam reveals regular rate and Rhythm. Abdominal exam reveals normal bowel sounds, nontender, no organomegaly. Extremities are nonedematous and both femoral and pedal pulses are normal. 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 No focal weakness. - Constitutional Vitals: Temp Pulse Resp BP Pulse Ox 98.0 F 75 20 174/83 87 04/14/21 04:25 04/14/21 04:25 04/14/21 04:25 04/14/21 04:25 04/14/21 04:25 HEART Score - HEART Score Troponin: Troponin T 0.014 ng/mL (0.00-0.029) 04/13/21 05:53 Results - Labs CBC & Chem 7: 04/13/21 05:53 04/13/21 07:15 Labs: Laboratory Last Values WBC 10.5 K/mm3 (4.5-11.0) 04/13/21 05:53 RBC 3.35 M/mm3 (3.65-5.03) L 04/13/21 05:53 Hgb 11.3 gm/dl (10.1-14.3) 04/13/21 05:53 Hct 32.0 % (30.3-42.9) 04/13/21 05:53 MCV 95 fl (79-97) 04/13/21 05:53 MCH 34 pg (28-32) H 04/13/21 05:53 MCHC 35 % (30-34) H 04/13/21 05:53 RDW 15.0 % (13.2-15.2) 04/13/21 05:53 Plt Count 344 K/mm3 (140-440) 04/13/21 05:53 Lymph % (Auto) 17.4 % (13.4-35.0) 04/13/21 05:53 [place] % (Auto) 6.9 % (0.0-7.3) 04/13/21 05:53 Eos % (Auto) 3.4 % (0.0-4.3) 04/13/21 05:53 Baso % (Auto) 0.7 % (0.0-1.8) 04/13/21 05:53 Lymph # (Auto) 1.8 K/mm3 (1.2-5.4) 04/13/21 05:53 [place] # (Auto) 0.7 K/mm3 (0.0-0.8) 04/13/21 05:53 Eos # (Auto) 0.4 K/mm3 (0.0-0.4) 04/13/21 05:53 Baso # (Auto) 0.1 K/mm3 (0.0-0.1) 04/13/21 05:53 Seg Neutrophils % 71.6 % (40.0-70.0) H 04/13/21 05:53 Seg Neutrophils # 7.5 K/mm3 (1.8-7.7) 04/13/21 05:53 D-Dimer 1820.81 ng/mlDDU (0-234) H 04/13/21 07:15 Sodium 144 mmol/L (137-145) 04/13/21 05:53 Potassium 4.0 mmol/L (3.6-5.0) 04/13/21 05:53 Chloride 105.3 mmol/L (98-107) 04/13/21 05:53 Carbon Dioxide 28 mmol/L (22-30) 04/13/21 05:53 Anion Gap 15 mmol/L 04/13/21 05:53 BUN 15 mg/dL (7-17) 04/13/21 05:53 Creatinine 1.2 mg/dL (0.6-1.2) 04/13/21 05:53 Estimated GFR 55 ml/min 04/13/21 05:53 BUN/Creatinine Ratio 13 % 04/13/21 05:53 Glucose 178 mg/dL (65-100) H 04/13/21 07:15 POC Glucose 182 mg/dL (70-105) H 04/14/21 07:37 Calcium 9.4 mg/dL (8.4-10.2) 04/13/21 05:53 Ferritin 167.8 ng/mL (10.0-200.0) 04/13/21 07:15 Total Bilirubin 0.50 mg/dL (0.1-1.2) 04/13/21 05:53 AST 22 units/L (5-40) 04/13/21 05:53 ALT 16 units/L (7-56) 04/13/21 05:53 Alkaline Phosphatase 88 units/L (35-129) 04/13/21 05:53 Lactate Dehydrogenase 300 units/L (91-180) H 04/13/21 07:15 Troponin T 0.014 ng/mL (0.00-0.029) 04/13/21 05:53 C-Reactive Protein 1.10 mg/dL (0.00-1.30) 04/13/21 07:15 NT-Pro-B Natriuret Pep 3520 pg/mL (0-900) H 04/13/21 07:15 Total Protein 6.9 g/dL (6.3-8.2) 04/13/21 05:53 Albumin 4.2 g/dL (3.9-5) 04/13/21 05:53 Albumin/Globulin Ratio 1.6 % 04/13/21 05:53 Procalcitonin < 0.05 ng/mL (<0.15) 04/13/21 07:15 Active Medications - Current Medications Current Medications: Generic Name Dose Route Start Last Admin Trade Name Freq PRN Reason Stop Dose Admin Albuterol 2.5 mg 04/13/21 10:32 Albuterol 2.5 Mg/3 Ml Nebu IH Q4HRT PRN Shortness Of Breath Clonidine HCl 0.2 mg 04/13/21 22:00 04/13/21 23:12 Clonidine 0.2 Mg Tab PO 0.2 mg Q12HR ROSLYN Administration Dextrose 50 ml 04/13/21 10:31 Dextrose 50% In Water (25gm) 50 Ml Syringe IV Q30MIN PRN Hypoglycemia Protocol Enoxaparin Sodium 40 mg 04/13/21 22:00 04/13/21 23:12 Enoxaparin 40 Mg/0.4 Ml Inj SUB-Q 40 mg QDAY@2200 ROSLYN Administration Protocol Hydrochlorothiazide 25 mg 04/13/21 13:00 04/13/21 12:32 Hydrochlorothiazide 25 Mg Tab PO 25 mg QDAY ROSLYN Administration Insulin Glargine 30 units 04/13/21 22:00 04/13/21 23:11 Insulin Glargine 100 Units/Ml SUB-Q 30 units BID ROSLYN Administration Insulin Human Lispro 0 unit 04/13/21 22:00 04/13/21 23:11 Insulin Lispro 100 Unit/Ml SUB-Q 8 unit ACHS ROSLYN Administration Protocol Labetalol HCl 200 mg 04/13/21 13:00 04/13/21 23:12 Labetalol 200 Mg Tab PO 200 mg BID ROSLYN Administration Methylprednisolone Sodium Succinate 60 mg 04/13/21 14:00 04/14/21 05:35 Methylprednisolone Sod Succinate 125 Mg/2 Ml Inj IV 60 mg Q8HR ROSLYN Administration Montelukast Sodium 10 mg 04/13/21 22:00 04/13/21 23:13 Montelukast 10 Mg Tab PO 10 mg QHS ROSLYN Administration Nicotine 21 mg 04/13/21 13:00 04/13/21 13:49 Nicotine 21 Mg/24 Hr Patch TD 21 mg QDAY ROSLYN Administration Oxycodone HCl 2.5 mg 04/13/21 12:09 04/14/21 02:26 Oxycodone 5 Mg Tab PO 2.5 mg Q6H PRN Administration Pain, Moderate (4-6) Oxycodone/Acetaminophen 1 tab 04/13/21 12:08 04/14/21 02:27 Oxycodone /Acetaminophen 5-325mg Tab PO 1 tab Q6H PRN Administration Pain, Moderate (4-6) Pravastatin Sodium 80 mg 04/13/21 22:00 04/13/21 23:16 Pravastatin 80 Mg Tab PO 80 mg QHS ROSLYN Administration Sertraline HCl 50 mg 04/13/21 13:00 04/13/21 12:32 Sertraline 50 Mg Tab PO 50 mg QDAY ROSLYN Administration
[2021-04-14 09:59] LABS: Calcium 9.3 mg/dL (8.4-10.2)
[2021-04-14] MEDS: hydroCHLOROthiazide 25 MG TAB PO SCH (10:14)
[2021-04-14] MEDS: SERTRALINE 50 MG TAB PO SCH (10:15)
[2021-04-14] MEDS: NICOTINE 21 MG/24 HR PATCH TD SCH (10:15)
[2021-04-14] MEDS: INSULIN LISPRO 100 UNIT/ML SUB-Q SCH ×3 (10:16→18:09)
[2021-04-14] MEDS: cloNIDine 0.2 MG TAB PO SCH (10:26)
[2021-04-14] MEDS: INSULIN GLARGINE 100 UNITS/ML SUB-Q SCH (10:29)
--- NOTE | 2021-04-14 13:19 | Progress Note ---
Assessment and Plan Cultures: Covid PCR: indeterminate A/P: 65 yo Female past medical history hypertension, diabetes presented to hospital as Covid PUI. #Covid PUI: Normal inflammatory markers, episodes of hypoxia. Moderate suspicion. Received first dose Covid vaccine last week approximately the time of symptom onset. May have been infected prior to receiving vaccination if positive. Await repeat PCR. #Shortness of breath: Pulmonary edema versus infection. Elevated BNP with nonspecific chest x-ray findings. Elevated D-dimer #Diabetes: tight glycemic control for best outcomes. Recs: -Repeat Covid PCR -If positive please start remdesivir, steroids. -procalcitonin normal, ok to stop antibiotics. Thank you for the consult, we will continue to follow. Dr. Lambert covering this weekend. Natalie Badillo MD [facility] O: [phone] F: [phone] Subjective Date of service: 04/14/21 Interval history: Afebrile, no changes at present. Covid PCR was indeterminate Imaging personally reviewed: Chest CTA: No evidence of pulmonary embolus, positive for mild CHF. Moderate bilateral perihilar infiltrates, most likely edema Objective - Exam Narrative Exam: Physical exam deferred to reduce risk of transmission of COVID-19. Please refer to primary team's note. - Constitutional Vitals: Vital Signs Temp Pulse Resp BP Pulse Ox 98.0 F 75 20 174/83 87 04/14/21 04:25 04/14/21 04:25 04/14/21 04:25 04/14/21 04:25 04/14/21 04:25 Temperature -Last 24 Hours Temperature 98.0 F Temperature 97.9 F - Labs CBC & Chem 7: 04/13/21 05:53 04/14/21 07:15 Labs: Abnormal lab results 04/13/21 04/13/21 04/13/21 Range/Units 12:18 16:19 21:44 BUN (7-17) mg/dL Creatinine (0.6-1.2) mg/dL Glucose (65-100) mg/dL POC Glucose 199 H 180 H 351 H (70-105) mg/dL 04/14/21 04/14/21 04/14/21 Range/Units 01:47 07:15 07:37 BUN 24 H (7-17) mg/dL Creatinine 1.5 H (0.6-1.2) mg/dL Glucose 163 H (65-100) mg/dL POC Glucose 285 H 182 H (70-105) mg/dL 04/14/21 Range/Units 12:51 BUN (7-17) mg/dL Creatinine (0.6-1.2) mg/dL Glucose (65-100) mg/dL POC Glucose 305 H (70-105) mg/dL
--- NOTE | 2021-04-14 13:36 | Discharge Summary ---
Providers - Providers Date of Admission: 04/13/21 09:11 Date of discharge: 04/14/21 Attending physician: VANESSA OLIVARES MD 04/13/21 10:26 Consult to Physician [CONS] Routine Comment: Consulting Provider: PARISA DONAHUE Physician Instructions: Reason For Exam: pui Primary care physician: FRANK ENGEL MD Hospitalization Reason for admission: Acute respiratory failure, acute asthma exacerbation Condition: Stable Hospital course: History of present illness: 65-year-old -[place] female with past medical history significant for hypertension, diabetes mellitus, asthma, tobacco use presented to the emergency department with complaints of shortness of breath that started a week ago after she took her Covid shot. Shortness of breath is progressively getting worse and for the past 2 days patient was not able to breath and presented to the emergency department. Patient said she was taking her albuterol inhaler without improvement. Patient states she has cough which is productive of blood mixed with sputum. Patient denied any fever, chills, or chest pain. In the emergency department patient's blood pressure was uncontrolled, patient had elevated D-dimer, patient has abnormal chest x-ray. Patient was started with IV antibiotics, IV Solu-Medrol, nebulizer treatment. CTA chest ordered, Doppler ultrasound of the lower extremities ordered. ID was consulted and patient admitted to the floor. COVID-19 test ordered. Hospital course Acute respiratory failure -Patient was placed on Solu-Medrol, nebulizer treatment and oxygen support -We will continue to monitor Asthma exacerbation -Management as stated above Covid pneumonia versus bacterial pneumonia -Patient is on IV antibiotics -IV Solu-Medrol -ID consulted Elevated D-dimer -CTA chest and bilateral Doppler ultrasound of the lower extremities ordered Hypertensive urgency -Patient placed back on her home medications including clonidine Diabetes mellitus -Resume home dose of Lantus 30 units twice daily -Sliding scale insulin, ADA diet and adjust insulin as needed History of CHF -We will do echo DVT prophylaxis; on Lovenox CODE STATUS; full Disposition; admit to medical floor. Management plan was discussed with the patient and was in agreement with the plan of care. 04/14/2021 CTA was done negative for PE, significant for mild CHF. Procalcitonin level was low and IV antibiotics discontinued COVID-19 test is still pending Patient's home medications restarted; blood pressure is uncontrolled. And after she took her home medications if it is still high will adjust blood pressure medications. Echo was done and was normal. Patient was doing well, shortness of breath resolved. Patient discharged home with breathing treatments. Patient was hemodynamically stable at the time of discharge. Management plan was discussed with the patient and was in agreement with the plan of care. Patient advised to continue to be adherent with her home medications. Disposition: DC-01 TO HOME OR SELFCARE Final Discharge Diagnosis (Prints w/discharge instructions): Acute respiratory failure. Acute asthma exacerbation Time spent for discharge: 35 minutes - Discharge Diagnoses (1) Asthma exacerbation Status: Acute (2) Nicotine use Status: Acute (3) Hypertensive urgency Status: Acute Core Measure Documentation - Palliative Care Palliative Care/ Comfort Measures: Not Applicable - Core Measures Any of the following diagnoses?: none Exam - Physical Exam Narrative exam: Not in cardiopulmonary distress. The patient appeared well nourished and normally developed. Vital signs as documented. Head exam is unremarkable. No scleral icterus . Neck is without jugular venous distension, thyromegaly, or carotid bruits. Lungs are clear to auscultation. Cardiac exam reveals regular rate and Rhythm. Abdominal exam reveals normal bowel sounds, nontender, no organomegaly. Extremities are nonedematous and both femoral and pedal pulses are normal. COURTROOM DEPUTY: Alert and oriented 3. No focal weakness. - Constitutional Vitals: Temp Pulse Resp BP Pulse Ox 98.0 F 75 20 174/83 87 04/14/21 04:25 04/14/21 04:25 04/14/21 04:25 04/14/21 04:25 04/14/21 04:25 Plan Activity: no restrictions Weight Bearing Status: Full Weight Bearing Diet: low cholesterol, low salt Follow up with: FRANK ENGEL MD [Primary Care Provider] - 3-5 Days Prescriptions: Montelukast [Singulair] 10 mg PO QHS #30 tablet methylPREDNISolone [Medrol 4MG DOSEPAK (21 tabs)] 4 mg PO DAILY #1 tab.ds.pk oxyCODONE /ACETAMINOPHEN [Percocet 5/325 mg] 1 tab PO Q6H PRN #14 tablet PRN Reason: Pain, Moderate (4-6) Albuterol Sulfate [Proventil Hfa] 6.7 gm IH Q4H PRN #1 hfa.aer.ad PRN Reason: Dyspnea
--- NOTE | 2021-04-14 13:37 | Consultation ---
History of Present Illness Consult date: 04/14/21 Requesting physician: VANESSA OLIVARES Consult reason: bradycardia History of present illness: Charted in Error Past History Past Medical History: arthritis, diabetes, hypertension, other Past Surgical History: hysterectomy, total knee replacement Social history: smoking (Daily smoker), full code. denies: alcohol abuse, prescription drug abuse, IV drug use Family history: diabetes, hypertension Medications and Allergies Allergies Allergy/AdvReac Type Severity Reaction Status Date / Time Sulfa (Sulfonamide Allergy Swelling Verified 04/29/19 10:09 Antibiotics) Home Medications Medication Instructions Recorded Confirmed Last Taken Type Multivitamin [One-Daily 1 each PO QDAY 04/13/21 04/13/21 Unknown History Multi-Vitamin] Oxycodone HCl/Acetaminophen 1 each PO Q6HR PRN 04/13/21 04/13/21 Unknown History [Percocet 7.5/325 mg] Sertraline [Zoloft] 50 mg PO QDAY 04/13/21 04/13/21 Unknown History Simvastatin 40 mg PO QHS 04/13/21 04/13/21 Unknown History Ubidecarenone [Coenzyme Q-10] 200 mg PO QDAY 04/13/21 04/13/21 Unknown History hydroCHLOROthiazide [HCTZ] 25 mg PO QDAY 04/13/21 04/13/21 Unknown History labetaloL [Labetalol 200mg TAB] 200 mg PO BID 04/13/21 04/13/21 Unknown History Albuterol Sulfate [Proventil Hfa] 6.7 gm IH Q4H PRN #1 hfa.aer.ad 04/14/21 Unknown Rx Montelukast [Singulair] 10 mg PO QHS #30 tablet 04/14/21 Unknown Rx methylPREDNISolone [Medrol 4MG 4 mg PO DAILY #1 tab.ds.pk 04/14/21 Unknown Rx DOSEPAK (21 tabs)] oxyCODONE /ACETAMINOPHEN [Percocet 1 tab PO Q6H PRN #14 tablet 04/14/21 Unknown Rx 5/325 mg] Active Meds: Active Medications Albuterol (Albuterol 2.5 Mg/3 Ml Nebu) 2.5 mg IH Q4HRT PRN PRN Reason: Shortness Of Breath Clonidine HCl (Clonidine 0.2 Mg Tab) 0.2 mg PO Q12HR ROSLYN Last Admin: 04/14/21 10:26 Dose: 0.2 mg Documented by: Dextrose (Dextrose 50% In Water (25gm) 50 Ml Syringe) 50 ml IV Q30MIN PRN; Protocol PRN Reason: Hypoglycemia Enoxaparin Sodium (Enoxaparin 40 Mg/0.4 Ml Inj) 40 mg SUB-Q QDAY@2200 ROSLYN; Protocol Last Admin: 04/13/21 23:12 Dose: 40 mg Documented by: Hydrochlorothiazide (Hydrochlorothiazide 25 Mg Tab) 25 mg PO QDAY [facility], [facility]1983 Last Admin: 04/14/21 10:14 Dose: 25 mg Documented by: Insulin Glargine (Insulin Glargine 100 Units/Ml) 30 units SUB-Q BID [facility], [facility]1983 Last Admin: 04/14/21 10:29 Dose: 30 units Documented by: Insulin Human Lispro (Insulin Lispro 100 Unit/Ml) 0 unit SUB-Q ACHS [facility], [facility]1983; Protocol Last Admin: 04/14/21 13:13 Dose: 6 unit Documented by: Labetalol HCl (Labetalol 200 Mg Tab) 200 mg PO BID [facility] Last Admin: 04/14/21 10:14 Dose: 200 mg Documented by: Methylprednisolone Sodium Succinate (Methylprednisolone Sod Succinate 125 Mg/2 Ml Inj) 60 mg IV Q8HR [facility], [facility]1983 Last Admin: 04/14/21 13:13 Dose: 60 mg Documented by: Montelukast Sodium (Montelukast 10 Mg Tab) 10 mg PO QHS [facility] Last Admin: 04/13/21 23:13 Dose: 10 mg Documented by: Nicotine (Nicotine 21 Mg/24 Hr Patch) 21 mg TD QDAY [facility] Last Admin: 04/14/21 10:15 Dose: 21 mg Documented by: Oxycodone HCl (Oxycodone 5 Mg Tab) 2.5 mg PO Q6H PRN PRN Reason: Pain, Moderate (4-6) Last Admin: 04/14/21 10:14 Dose: 2.5 mg Documented by: Oxycodone/Acetaminophen (Oxycodone /Acetaminophen 5-325mg Tab) 1 tab PO Q6H PRN PRN Reason: Pain, Moderate (4-6) Last Admin: 04/14/21 10:15 Dose: 1 tab Documented by: Pravastatin Sodium (Pravastatin 80 Mg Tab) 80 mg PO QHS [facility] Last Admin: 04/13/21 23:16 Dose: 80 mg Documented by: Sertraline HCl (Sertraline 50 Mg Tab) 50 mg PO QDAY ROSLYN Last Admin: 04/14/21 10:15 Dose: 50 mg Documented by: Review of Systems ROS unobtainable: due to mental status (Patient is confused and poor historian but is able to answer questions with questionable accuracy) Constitutional: no weight loss, no weight gain, no fever, no chills, no sweats Ears, nose, mouth and throat: no ear pain, no ear discharge, no nose pain, no nasal congestion, no nasal discharge Cardiovascular: no chest pain, no orthopnea, no palpitations, no rapid/irregular heart beat, no edema, no syncope, no lightheadedness, no shortness of breath, no dyspnea on exertion, no paroxysmal nocturnal dyspnea, no claudication, no phlebitis, no high blood pressure Physical Examination Vital Signs Temp Pulse Resp BP Pulse Ox 98.4 F 109 H 20 238/121 100 04/13/21 05:42 04/13/21 05:42 04/13/21 05:42 04/13/21 05:42 04/13/21 05:42 Results 04/13/21 05:53 04/14/21 07:15 Comprehensive Metabolic Panel 04/14/21 Range/Units 07:15 Sodium 140 (137-145) mmol/L Potassium 4.3 (3.6-5.0) mmol/L Chloride 102.4 (98-107) mmol/L Carbon Dioxide 24 (22-30) mmol/L BUN 24 H (7-17) mg/dL Creatinine 1.5 H (0.6-1.2) mg/dL Glucose 163 H (65-100) mg/dL Calcium 9.3 (8.4-10.2) mg/dL
[2021-04-14 18:09] VITALS: BP 185/77
--- NOTE | 2021-04-14 19:35 | Electrocardiograph Report ---
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
== END 2021-04-14 18:20 | disposition home or self-care (01) ==
LOC: ED 05:01 → 3A 09:11
PROVIDERS: ADMIT Internal Medicine; ATTEND Internal Medicine
DX: J96.00 Acute respiratory failure, unspecified whether with hypoxia or hypercapnia (principal); Z20.822 Contact with and (suspected) exposure to COVID-19; J45.901 Unspecified asthma with (acute) exacerbation; I16.0 Hypertensive urgency; I11.0 Hypertensive heart disease with heart failure; I50.9 Heart failure, unspecified; J18.9 Pneumonia, unspecified organism; R79.89 Other specified abnormal findings of blood chemistry; E11.9 Type 2 diabetes mellitus without complications; M19.90 Unspecified osteoarthritis, unspecified site; F17.210 Nicotine dependence, cigarettes, uncomplicated; Z90.710 Acquired absence of both cervix and uterus; Z79.4 Long term (current) use of insulin
CPT/HCPCS: 36415; 71045; 71275; 80048; 80053; 82728; 82947; 82962; 83615; 83880; 84145; 84484; 85025; 85379; 86140; 93005; 93306; 94644; 96365; 96366; 96367; 96372; 96375; 96376; 99285; 99406; A9270; G0378; J0456; J0696; J1100; J1650; J1940; J2270; J2405; J2930; Q9967; U0003; J1815

== ENCOUNTER 2021-04-21 09:31 | Observation (INO) | payer MEDICARE ==
[2021-04-21] MEDS ORDERED: cloNIDine 0.2 MG TAB PO ONE (10:13)
[2021-04-21 10:18] LABS: Basophils # (Auto) 0.1 K/mm3 (0.0-0.1); Basophils % (Auto) 0.9 % (0.0-1.8); Eosinophils # (Auto) 0.3 K/mm3 (0.0-0.4); Eosinophils % (Auto) 4.2 % (0.0-4.3); Hematocrit 30.9 % (30.3-42.9); Hemoglobin 10.7 gm/dl (10.1-14.3); Lymphocytes # (Auto) 1.2 K/mm3 (1.2-5.4); Lymphocytes % (Auto) 15.6 % (13.4-35.0); Mean Corpuscular HGB Conc 35 % (30-34); Mean Corpuscular Volume 96 fl (79-97); Monocytes # (Auto) 0.5 K/mm3 (0.0-0.8); Monocytes % (Auto) 7.4 % (0.0-7.3); Platelet Count 373 K/mm3 (140-440); Red Blood Count 3.21 M/mm3 (3.65-5.03); Red Cell Distribution Width 15.2 % (13.2-15.2)
[2021-04-21] MEDS ORDERED: oxyCODONE /ACETAMINOPHEN 5-325MG TAB PO ONE (10:20)
--- NOTE | 2021-04-21 10:24 | Emergency Department Report ---
ED Shortness of Breath HPI - General Chief Complaint: Chest Pain Stated Complaint: CHEST PAINS Time Seen by Provider: 04/21/21 10:11 Source: patient Mode of arrival: Ambulatory Limitations: No Limitations - History of Present Illness Initial Comments: Chief complaint: "I feel so bad. I have fluid everywhere." HPI: This is a 65-year-old female with history of diabetes mellitus, COPD, CHF, hypertension, pancreatitis who presents with shortness of breath. She feels congestion in her chest. I evaluated this patient last week. She was ruled out for Covid infection. She informed me that she received IV fluid during her hospitalization. She feels that IV fluid caused her to develop pulmonary congestion since she has history of CHF. She denies new cough. She denies fever. She has generalized muscle aches. She has had these muscle aches since receiving her first and only dose of the COVID-19 vaccine. She denies chest pain. After living in [place] for 64 years, Mrs. Kraus moved to [place] to be close to family. She is now receiving medical care through [facility]. She is waiting to be referred to a child welfare specialist. Echo obtained last week at this hospital 04/13: severe concentric LVH EF 50-55% Complaint: shortness of breath -: Gradual, days(s) (Since discharge several days ago) Severity: moderate Consistency: constant Improves With: nothing Worsens With: nothing Known History Of: congestive heart failure, other (COPD) Context: recent illness (Recent hospitalization) Associated Symptoms: other (Malaise generalized body aches) - Related Data Home Medications Medication Instructions Recorded Confirmed Last Taken Multivitamin [One-Daily 1 each PO QDAY 04/13/21 04/21/21 04/21/21 09:00 Multi-Vitamin] Oxycodone HCl/Acetaminophen 1 each PO Q6HR PRN 04/13/21 04/21/21 Unknown [Percocet 7.5/325 mg] Sertraline [Zoloft] 50 mg PO QDAY 04/13/21 04/21/21 04/21/21 09:00 Simvastatin 40 mg PO QHS 04/13/21 04/21/21 04/20/21 21:00 Ubidecarenone [Coenzyme Q-10] 200 mg PO QDAY 04/13/21 04/21/21 Unknown hydroCHLOROthiazide [HCTZ] 25 mg PO QDAY 04/13/21 04/21/21 04/14/21 09:00 labetaloL [Labetalol 200mg TAB] 200 mg PO BID 04/13/21 04/21/21 04/21/21 09:00 Previous Rx's Medication Instructions Recorded Last Taken Type Albuterol Sulfate [Proventil Hfa] 6.7 gm IH Q4H PRN #1 hfa.aer.ad 04/14/21 04/21/21 09:00 Rx Montelukast [Singulair] 10 mg PO QHS #30 tablet 04/14/21 04/20/21 21:00 Rx methylPREDNISolone [Medrol 4MG 4 mg PO DAILY #1 tab.ds.pk 04/14/21 Unknown Rx DOSEPAK (21 tabs)] oxyCODONE /ACETAMINOPHEN [Percocet 1 tab PO Q6H PRN #14 tablet 04/14/21 04/21/21 08:00 Rx 5/325 mg] Allergies Allergy/AdvReac Type Severity Reaction Status Date / Time Sulfa (Sulfonamide Allergy Swelling Verified 04/29/19 10:09 Antibiotics) ED Review of Systems ROS: Stated complaint: CHEST PAINS Other details as noted in HPI Comment: All other systems reviewed and negative Constitutional: malaise. denies: fever Eyes: denies: as per HPI Respiratory: shortness of breath Cardiovascular: denies: chest pain Gastrointestinal: denies: abdominal pain, nausea, vomiting ED Past Medical Hx - Past Medical History Previous Medical History?: Yes Hx Hypertension: Yes Hx Congestive Heart Failure: Yes (december 2018) Hx Diabetes: Yes Hx Asthma: Yes Additional medical history: pancreatitis 2017 - Surgical History Past Surgical History?: Yes Hx Cholecystectomy: Yes Additional Surgical History: knee sx, hysterectomy - Social History Smoking Status: Heavy Tobacco Smoker Substance Use Type: None - Medications Home Medications: Home Medications Medication Instructions Recorded Confirmed Last Taken Type Multivitamin [One-Daily 1 each PO QDAY 04/13/21 04/21/21 04/21/21 09:00 History Multi-Vitamin] Oxycodone HCl/Acetaminophen 1 each PO Q6HR PRN 04/13/21 04/21/21 Unknown History [Percocet 7.5/325 mg] Sertraline [Zoloft] 50 mg PO QDAY 04/13/21 04/21/21 04/21/21 09:00 History Simvastatin 40 mg PO QHS 04/13/21 04/21/21 04/20/21 21:00 History Ubidecarenone [Coenzyme Q-10] 200 mg PO QDAY 04/13/21 04/21/21 Unknown History hydroCHLOROthiazide [HCTZ] 25 mg PO QDAY 04/13/21 04/21/21 04/14/21 09:00 History labetaloL [Labetalol 200mg TAB] 200 mg PO BID 04/13/21 04/21/21 04/21/21 09:00 History Albuterol Sulfate [Proventil Hfa] 6.7 gm IH Q4H PRN #1 hfa.aer.ad 04/14/21 04/21/21 04/21/21 09:00 Rx Montelukast [Singulair] 10 mg PO QHS #30 tablet 04/14/21 04/21/21 04/20/21 21:00 Rx methylPREDNISolone [Medrol 4MG 4 mg PO DAILY #1 tab.ds.pk 04/14/21 04/21/21 Unknown Rx DOSEPAK (21 tabs)] oxyCODONE /ACETAMINOPHEN [Percocet 1 tab PO Q6H PRN #14 tablet 04/14/21 04/21/21 04/21/21 08:00 Rx 5/325 mg] ED Physical Exam - General Limitations: No Limitations General appearance: alert, in no apparent distress, other (Appears well no acute distress) - Head Head exam: Present: atraumatic, normocephalic - Eye Eye exam: Present: normal appearance - ENT ENT exam: Present: mucous membranes moist - Neck Neck exam: Present: normal inspection, full ROM - Respiratory Respiratory exam: Present: normal lung sounds bilaterally. Absent: respiratory distress, wheezes, rales, rhonchi, stridor - Cardiovascular Cardiovascular Exam: Present: regular rate, normal rhythm, normal heart sounds. Absent: systolic murmur, diastolic murmur, rubs, gallop - GI/Abdominal GI/Abdominal exam: Present: soft, normal bowel sounds. Absent: distended, tenderness, guarding, rebound - Extremities Exam Extremities exam: Present: normal inspection - Neurological Exam Neurological exam: Present: alert, oriented X3 - Psychiatric Psychiatric exam: Present: normal affect, normal mood - Skin Skin exam: Present: warm, dry, intact, normal color. Absent: rash ED Course Vital Signs 04/21/21 04/21/21 04/21/21 09:41 11:31 11:35 Temperature 98.9 F Pulse Rate 77 65 78 Respiratory 20 17 Rate Blood Pressure 215/82 214/82 Blood Pressure 213/140 [Right] O2 Sat by Pulse 98 100 Oximetry 04/21/21 04/21/21 04/21/21 11:45 11:57 12:01 Temperature Pulse Rate 85 70 69 Respiratory 14 11 L Rate Blood Pressure 215/82 214/82 202/92 Blood Pressure [Right] O2 Sat by Pulse 99 96 Oximetry 04/21/21 04/21/21 04/21/21 12:15 12:31 12:45 Temperature Pulse Rate 63 71 Respiratory 16 16 9 L Rate Blood Pressure 205/91 190/85 218/86 Blood Pressure [Right] O2 Sat by Pulse 99 97 90 Oximetry 04/21/21 04/21/21 04/21/21 13:01 13:15 13:31 Temperature Pulse Rate 65 75 74 Respiratory 18 11 L 20 Rate Blood Pressure 202/92 172/74 148/63 Blood Pressure [Right] O2 Sat by Pulse 94 94 Oximetry 04/21/21 04/21/21 04/21/21 13:45 14:01 14:15 Temperature Pulse Rate 77 76 76 Respiratory 21 20 19 Rate Blood Pressure 139/65 197/75 130/60 Blood Pressure [Right] O2 Sat by Pulse 93 92 98 Oximetry 04/21/21 04/21/21 04/21/21 14:31 14:45 15:01 Temperature Pulse Rate 74 80 85 Respiratory 14 21 15 Rate Blood Pressure 130/58 130/60 130/60 Blood Pressure [Right] O2 Sat by Pulse 98 94 94 Oximetry 04/21/21 04/21/21 04/21/21 15:15 15:31 15:45 Temperature Pulse Rate 84 79 75 Respiratory 19 21 19 Rate Blood Pressure 134/57 133/59 123/52 Blood Pressure [Right] O2 Sat by Pulse 94 88 Oximetry 04/21/21 04/21/21 16:01 16:15 Temperature Pulse Rate 70 71 Respiratory 21 19 Rate Blood Pressure 125/50 126/50 Blood Pressure [Right] O2 Sat by Pulse 95 96 Oximetry ED Medical Decision Making - Lab Data Result diagrams: 04/21/21 10:03 04/21/21 10:03 - EKG Data -: EKG Interpreted by Me EKG shows normal: sinus rhythm, axis Rate: normal - EKG Data Interpretation: LVH 04/21/21 10:23 EKG obtained 0943 EKG interpreted by me Rate 70 bpm normal axis prolonged QTC no ST elevation LVH poor R wave progression in the anterior leads - Radiology Data Radiology results: report reviewed Patient Name: BRIAN KRAUS Gender: Female Date of : 1955 Referring Provider: JESSE KNIGHT Organization: [facility] Accession Number: [id number] Requested Date: April 21, 2021 10:12 Report Status: Final Requested Procedure: 1 Procedure Description: XR chest 1V ap Modality: XR Findings Reporting MD: Maxwell Harris Dictation Time: April 21, 2021 10:17 External Grinder Tool: Not available Insulation Manager Date: CHEST 1 VIEW 04/21/2021 10:14 AM INDICATION / CLINICAL INFORMATION: dyspnea. COMPARISON: 04/13/2021 FINDINGS: SUPPORT DEVICES: None. HEART / MEDIASTINUM: Stable cardiomegaly. LUNGS / PLEURA: Minimally improved patchy bilateral opacities. No pneumothorax. ADDITIONAL FINDINGS: No significant additional findings. IMPRESSION: 1. Minimal improvement in patchy bilateral pulmonary opacities. Signer Name: Maxwell Harris MD Signed: 04/21/2021 10:17 AM Workstation Name: [id number] - Medical Decision Making 1. Acute diastolic heart failure: Patient treated with beta-lilian diuretic in the emergency department BNP elevated, troponin within normal limits, pulmonary edema persistemt since recent hospitalization 2. Hypertensive urgency suspect noncompliance as well as rebound hypertension from missed clonidine doses Critical care attestation.: If time is entered above; I have spent that time in minutes in the direct care of this critically ill patient, excluding procedure time. ED Disposition Clinical Impression: Acute diastolic heart failure, Hypertensive urgency Disposition: OP ADMIT IP TO THIS HOSP Is pt being admited?: Yes Does the pt Need Aspirin: No Condition: Stable
[2021-04-21 10:41] LABS: Albumin 3.8 g/dL (3.9-5); Calcium 9.3 mg/dL (8.4-10.2)
[2021-04-21] MEDS ORDERED: FUROSEMIDE 40 MG/4 ML INJ IV ONE (10:51)
--- NOTE | 2021-04-21 11:22 | XRay Report ---
CHEST 1 VIEW 04/21/2021 10:14 AM INDICATION / CLINICAL INFORMATION: dyspnea. COMPARISON: 04/13/2021 FINDINGS: SUPPORT DEVICES: None. HEART / MEDIASTINUM: Stable cardiomegaly. LUNGS / PLEURA: Minimally improved patchy bilateral opacities. No pneumothorax. ADDITIONAL FINDINGS: No significant additional findings. IMPRESSION: 1. Minimal improvement in patchy bilateral pulmonary opacities. Signer Name: Maxwell Harris MD Signed: 04/21/2021 11:17 AM Workstation Name: [id number]
--- NOTE | 2021-04-21 12:03 | History and Physical Report ---
History of Present Illness Chief complaint: I just feel bad History of present illness: 65 YO Female with Obesity, DM, COPD, HTN, Diastolic CHF, Nicotine Dependence, Chronic Pancreatitis presents to ED for evaluation. Patient reports "I feel really bad". Patient states that she has experienced generalized weakness, decreased exercise tolerance, shortness of breath, orthopnea, paroxysmal nocturnal dyspnea, dyspnea on exertion, as well as dyspnea at rest over the past 1 week with persistently worsening symptoms over the same timeframe. Patient also acknowledges bilateral lower extremity edema. Patient transported to [facility] via private vehicle for further care and evaluation of the aforementioned symptoms. The patient was seen and evaluated in the emergency department. All lab and imaging studies reviewed. Patient found to have clinical symptoms consistent with diastolic CHF decompensation. Patient placed in observation status and admitted to telemetry due to increased risk of worsening symptoms. Patient treated with diuretic therapy supplemental oxygen and supportive care. Patient denies fever, chills, chest pain, palpitation, productive cough, skin rash, recent ill contacts, or known exposure to COVID-19. Prior admission on 04/13/2021 reviewed. All medication listed at time of admission has been reconciled. Advanced care planning conducted in ED. Past History Past Medical History: other (See HPI) Past Surgical History: cholecystectomy, hysterectomy, total knee replacement Social history: . denies: smoking, alcohol abuse, prescription drug abuse Family history: diabetes, hypertension Medications and Allergies Allergies Allergy/AdvReac Type Severity Reaction Status Date / Time Sulfa (Sulfonamide Allergy Swelling Verified 04/29/19 10:09 Antibiotics) Home Medications Medication Instructions Recorded Confirmed Last Taken Type Multivitamin [One-Daily 1 each PO QDAY 04/13/21 04/13/21 Unknown History Multi-Vitamin] Oxycodone HCl/Acetaminophen 1 each PO Q6HR PRN 04/13/21 04/13/21 Unknown History [Percocet 7.5/325 mg] Sertraline [Zoloft] 50 mg PO QDAY 04/13/21 04/13/21 Unknown History Simvastatin 40 mg PO QHS 04/13/21 04/13/21 Unknown History Ubidecarenone [Coenzyme Q-10] 200 mg PO QDAY 04/13/21 04/13/21 Unknown History hydroCHLOROthiazide [HCTZ] 25 mg PO QDAY 04/13/21 04/13/21 Unknown History labetaloL [Labetalol 200mg TAB] 200 mg PO BID 04/13/21 04/13/21 Unknown History Albuterol Sulfate [Proventil Hfa] 6.7 gm IH Q4H PRN #1 hfa.aer.ad 04/14/21 Unknown Rx Montelukast [Singulair] 10 mg PO QHS #30 tablet 04/14/21 Unknown Rx methylPREDNISolone [Medrol 4MG 4 mg PO DAILY #1 tab.ds.pk 04/14/21 Unknown Rx DOSEPAK (21 tabs)] oxyCODONE /ACETAMINOPHEN [Percocet 1 tab PO Q6H PRN #14 tablet 04/14/21 Unknown Rx 5/325 mg] Review of Systems Constitutional: weakness, no weight loss, no weight gain, no fever, no chills Ears, nose, mouth and throat: no ear pain, no ear discharge, no nose pain, no nasal congestion, no nasal discharge Breasts: no change in shape, no swelling, no mass Cardiovascular: orthopnea, shortness of breath, dyspnea on exertion, paroxysmal nocturnal dyspnea, leg edema, decreased exercise tolerance, no chest pain, no syncope Respiratory: no cough, no cough with sputum, no excessive sputum, no hemoptysis Gastrointestinal: no abdominal pain, no nausea, no vomiting, no diarrhea, no constipation Genitourinary Female: no pelvic pain, no flank pain, no dysuria, no urinary frequency, no urgency Rectal: no pain, no incontinence, no bleeding Musculoskeletal: no neck stiffness, no neck pain, no shooting arm pain, no low back pain Integumentary: no rash, no pruritis, no redness, no sores, no wounds, no jaundice Neurological: no head injury, no paralysis, no weakness, no tingling, no seizures, no syncope, no tremors Psychiatric: no anxiety, no memory loss, no sleep disturbances, no insomnia, no hypersomnia, no change in appetite, no suicidal ideation, no disorientation Endocrine: no cold intolerance, no heat intolerance, no excessive thirst, no polydipsia, no polyuria, no nocturia Hematologic/Lymphatic: no easy bruising, no easy bleeding, no lymphadenopathy, no lymphedema Allergic/Immunologic: no urticaria, no allergic rhinitis, no wheezing, no anaphylaxis, no angioedema Exam - Constitutional Vitals: Temp Pulse Resp BP Pulse Ox 98.9 F 70 14 214/82 99 04/21/21 09:41 04/21/21 11:57 04/21/21 11:45 04/21/21 11:57 04/21/21 11:45 General appearance: Present: mild distress - EENT Eyes: Present: PERRL ENT: hearing intact, clear oral mucosa - Neck Neck: Present: supple, normal ROM - Respiratory Respiratory effort: normal Respiratory: bilateral: diminished, rales - Cardiovascular Heart Sounds: Present: S1 & S2. Absent: rub, click - Extremities Extremities: pulses symmetrical Extremity abnormal: edema Peripheral Pulses: within normal limits - Abdominal General gastrointestinal: Present: soft, non-tender, non-distended, normal bowel sounds Female genitourinary: Present: normal - Integumentary Integumentary: Present: clear, warm, dry - Musculoskeletal Musculoskeletal: gait normal, strength equal bilaterally - Psychiatric Psychiatric: appropriate mood/affect, intact judgment & insight - Neurologic Neurologic: CNII-XII intact, moves all extremities HEART Score - HEART Score Troponin: Troponin T 0.011 ng/mL (0.00-0.029) 04/21/21 10:03 Results - Labs CBC & Chem 7: 04/21/21 10:03 04/21/21 10:03 Labs: Abnormal lab results 04/21/21 04/21/21 Range/Units 10:03 10:03 RBC 3.21 L (3.65-5.03) M/mm3 MCH 34 H (28-32) pg MCHC 35 H (30-34) % [place] % (Auto) 7.4 H (0.0-7.3) % Seg Neutrophils % 71.9 H (40.0-70.0) % Creatinine 1.3 H (0.6-1.2) mg/dL Glucose 101 H (65-100) mg/dL NT-Pro-B Natriuret Pep 3137 H (0-900) pg/mL Albumin 3.8 L (3.9-5) g/dL Assessment and Plan - Patient Problems (1) Acute diastolic heart failure Current Visit: Yes Status: Acute Plan to address problem: CHF protocol: Strict I/O, monitor urine output every shift, daily weight, afterload reduction, blood pressure control, diuresis with Lasix, supportive care. (2) Hypertensive urgency Current Visit: Yes Status: Acute Plan to address problem: Monitor blood pressure every shift, continue medical management, resume prehospital antihypertensive therapy. (3) Obesity (BMI 30.0-34.9) Current Visit: Yes Status: Acute Plan to address problem: Balanced diet, increase physical activity at discharge, outpatient pulmonary follow-up for sleep study. (4) DVT prophylaxis Current Visit: Yes Status: Acute Plan to address problem: SCD to bilateral lower extremities while in bed, patient is ambulatory (5) Advance care planning Current Visit: Yes Status: Acute Plan to address problem: Disease education conducted, care plan discussed, diagnosis discussed, prognosis discussed, patient is full code, patient knowledges understanding and agreement with care plan, +30 minutes. (6) Nicotine dependence Current Visit: Yes Status: Acute Qualifiers: Nicotine product type: cigarettes Substance use status: in withdrawal Qualified Code(s): F17.213 - Nicotine dependence, cigarettes, with withdrawal Plan to address problem: Smoking cessation counseling, supportive care, behavior change counseling, +15 minutes.
[2021-04-21] MEDS ORDERED: ALBUTEROL 2.5 MG/3 ML NEBU IH PRN (12:04)
[2021-04-21] MEDS ORDERED: ACETAMINOPHEN 325 MG TAB PO PRN (12:04)
[2021-04-21] MEDS ORDERED: ONDANSETRON 4 MG/2 ML INJ IV PRN (12:04)
[2021-04-21] MEDS ORDERED: MORPHINE 4 MG/1 ML INJ IV ONE (13:05)
[2021-04-21] MEDS ORDERED: ONDANSETRON 4 MG/2 ML INJ IV ONE (13:06)
[2021-04-21] MEDS ORDERED: hydrALAZINE 20 MG/1 ML INJ IV ONE (13:06)
[2021-04-21] MEDS: FUROSEMIDE 20 MG/2 ML INJ IV SCH (17:24)
--- NOTE | 2021-04-21 18:15 | Electrocardiograph Report ---
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
[2021-04-21] MEDS: oxyCODONE /ACETAMINOPHEN 5-325MG TAB PO PRN (18:21)
[2021-04-21] MEDS: INSULIN LISPRO 100 UNIT/ML SUB-Q SCH (22:55)
[2021-04-22] MEDS: oxyCODONE /ACETAMINOPHEN 5-325MG TAB PO PRN ×4 (00:46→20:58)
[2021-04-22 05:34] LABS: Calcium 8.4 mg/dL (8.4-10.2)
[2021-04-22] MEDS: FUROSEMIDE 20 MG/2 ML INJ IV SCH ×2 (06:22→17:53)
[2021-04-22] MEDS ORDERED: hydrALAZINE 20 MG/1 ML INJ IV PRN (06:28)
[2021-04-22] MEDS: INSULIN LISPRO 100 UNIT/ML SUB-Q SCH ×4 (08:23→22:16)
--- NOTE | 2021-04-22 09:05 | Progress Note ---
Assessment and Plan Assessment and plan: Acute diastolic heart failure Accelerated hypertension. Obesity Nicotine dependence 04/22/2021. Patient with echocardiogram completed approximately a week ago that revealed left ventricular systolic function normal. Left ventricular ejection fraction 55 to 60%. Mild diastolic dysfunction with moderate to severe concentric left ventricular hypertrophy. Continue home antihypertensive medications. Cardiology consultation. History Interval history: No new issues overnight. Hospitalist Physical - Constitutional Vitals: Temp Pulse Resp BP Pulse Ox 98.6 F 65 18 158/68 96 04/22/21 07:43 04/22/21 07:43 04/22/21 07:43 04/22/21 07:43 04/22/21 07:43 General appearance: Present: mild distress - EENT Eyes: Present: PERRL, EOM intact ENT: hearing intact, clear oral mucosa, dentition normal - Neck Neck: Present: supple, normal ROM - Respiratory Respiratory effort: normal Respiratory: bilateral: CTA - Cardiovascular Rhythm: regular Heart Sounds: Present: S1 & S2. Absent: gallop, rub - Extremities Extremities: no ischemia, No edema, Full ROM - Abdominal General gastrointestinal: soft, non-tender, non-distended, normal bowel sounds - Integumentary Integumentary: Present: clear, warm, dry - Neurologic Neurologic: CNII-XII intact, moves all extremities HEART Score - HEART Score Troponin: Troponin T 0.011 ng/mL (0.00-0.029) 04/21/21 10:03 Results - Labs CBC & Chem 7: 04/21/21 10:03 04/22/21 04:31 Labs: Laboratory Last Values WBC 7.4 K/mm3 (4.5-11.0) 04/21/21 10:03 RBC 3.21 M/mm3 (3.65-5.03) L 04/21/21 10:03 Hgb 10.7 gm/dl (10.1-14.3) 04/21/21 10:03 Hct 30.9 % (30.3-42.9) 04/21/21 10:03 MCV 96 fl (79-97) 04/21/21 10:03 MCH 34 pg (28-32) H 04/21/21 10:03 MCHC 35 % (30-34) H 04/21/21 10:03 RDW 15.2 % (13.2-15.2) 04/21/21 10:03 Plt Count 373 K/mm3 (140-440) 04/21/21 10:03 Lymph % (Auto) 15.6 % (13.4-35.0) 04/21/21 10:03 [place] % (Auto) 7.4 % (0.0-7.3) H 04/21/21 10:03 Eos % (Auto) 4.2 % (0.0-4.3) 04/21/21 10:03 Baso % (Auto) 0.9 % (0.0-1.8) 04/21/21 10:03 Lymph # (Auto) 1.2 K/mm3 (1.2-5.4) 04/21/21 10:03 [place] # (Auto) 0.5 K/mm3 (0.0-0.8) 04/21/21 10:03 Eos # (Auto) 0.3 K/mm3 (0.0-0.4) 04/21/21 10:03 Baso # (Auto) 0.1 K/mm3 (0.0-0.1) 04/21/21 10:03 Seg Neutrophils % 71.9 % (40.0-70.0) H 04/21/21 10:03 Seg Neutrophils # 5.3 K/mm3 (1.8-7.7) 04/21/21 10:03 Sodium 138 mmol/L (137-145) 04/22/21 04:31 Potassium 4.2 mmol/L (3.6-5.0) 04/22/21 04:31 Chloride 100.5 mmol/L (98-107) 04/22/21 04:31 Carbon Dioxide 30 mmol/L (22-30) 04/22/21 04:31 Anion Gap 12 mmol/L 04/22/21 04:31 BUN 16 mg/dL (7-17) 04/22/21 04:31 Creatinine 1.5 mg/dL (0.6-1.2) H 04/22/21 04:31 Estimated GFR 42 ml/min 04/22/21 04:31 BUN/Creatinine Ratio 11 % 04/22/21 04:31 Glucose 126 mg/dL (65-100) H 04/22/21 04:31 POC Glucose 150 mg/dL (70-105) H 04/22/21 07:40 Calcium 8.4 mg/dL (8.4-10.2) 04/22/21 04:31 Total Bilirubin 0.50 mg/dL (0.1-1.2) 04/21/21 10:03 AST 34 units/L (5-40) 04/21/21 10:03 ALT 46 units/L (7-56) 04/21/21 10:03 Alkaline Phosphatase 78 units/L (35-129) 04/21/21 10:03 Troponin T 0.011 ng/mL (0.00-0.029) 04/21/21 10:03 NT-Pro-B Natriuret Pep 3137 pg/mL (0-900) H 04/21/21 10:03 Total Protein 6.4 g/dL (6.3-8.2) 04/21/21 10:03 Albumin 3.8 g/dL (3.9-5) L 04/21/21 10:03 Albumin/Globulin Ratio 1.5 % 04/21/21 10:03 Sheikh/IV: Voiding Method Toilet Active Medications - Current Medications Current Medications: Generic Name Dose Route Start Last Admin Trade Name Freq PRN Reason Stop Dose Admin Acetaminophen 650 mg 04/21/21 12:04 Acetaminophen 325 Mg Tab PO Q4H PRN Pain MILD(1-3)/Fever >100.5/QUEEN Albuterol 2.5 mg 04/21/21 12:04 Albuterol 2.5 Mg/3 Ml Nebu IH Q4HRT PRN Shortness Of Breath Furosemide 20 mg 04/21/21 18:00 04/22/21 06:22 Furosemide 20 Mg/2 Ml Inj IV 20 mg BID@0600,1800 ROSLYN Administration Hydralazine HCl 5 mg 04/22/21 06:28 Hydralazine 20 Mg/1 Ml Inj IV Q6HR PRN Hypertension Insulin Human Lispro 0 unit 04/21/21 22:00 04/22/21 08:23 Insulin Lispro 100 Unit/Ml SUB-Q 1 unit ACHS ROSLYN Administration Protocol Labetalol HCl 200 mg 04/22/21 06:27 04/22/21 06:46 Labetalol 200 Mg Tab PO 200 mg BID ROSLYN Administration Nicotine 7 mg 04/22/21 10:00 Nicotine 7 Mg/24 Hr Patch TD QDAY ROSLYN Ondansetron HCl 4 mg 04/21/21 12:04 Ondansetron 4 Mg/2 Ml Inj IV Q8H PRN Nausea And Vomiting Oxycodone/Acetaminophen 1 tab 04/21/21 18:09 04/22/21 08:22 Oxycodone /Acetaminophen 5-325mg Tab PO 1 tab Q6H PRN Administration Pain, Moderate (4-6) Sodium Chloride 10 ml 04/21/21 22:00 04/21/21 22:55 Sodium Chloride 0.9% 10 Ml Flush Syringe IV 10 ml BID ROSLYN Administration Sodium Chloride 10 ml 04/21/21 12:04 Sodium Chloride 0.9% 10 Ml Flush Syringe IV PRN PRN LINE FLUSH
[2021-04-22] MEDS: NICOTINE 7 MG/24 HR PATCH TD SCH (09:24)
[2021-04-22] MEDS ORDERED: MORPHINE 4 MG/1 ML INJ IV ONE (17:00)
[2021-04-22] MEDS ORDERED: NIFEdipine XL 60 MG TAB PO ONE (17:34)
--- NOTE | 2021-04-22 17:44 | Cat Scan Report ---
CT head/brain wo con INDICATION / CLINICAL INFORMATION: 65 years Female; left side weakness. TECHNIQUE: Routine CT head without contrast. All CT scans at this location are performed using CT dos e reduction for ALARA by means of automated exposure control. COMPARISON: None. FINDINGS: BRAIN / INTRACRANIAL CONTENTS: No acute hemorrhage, mass effect, midline shift, hydrocephalus, or acu te, large territorial infarct. No signs of significant atrophy or chronic infarct. No significant whi te matter abnormality seen. CRANIOCERVICAL JUNCTION: No significant abnormality. ORBITS: No significant abnormality of visualized orbits. SINUSES / MASTOIDS: There is a focal dehiscence of lamina papyracea on the left Mahendra of no clinical si gnificance. ADDITIONAL FINDINGS: None. IMPRESSION: 1. No focal mass, hemorrhage, hydrocephalus, or acute, large territorial infarct. Signer Name: Pan Connor MD, III Signed: 04/22/2021 5:40 PM Workstation Name: [facility] SYSTEMPathwork DiagnosticsROB[email or web address]
[2021-04-22] MEDS: NIFEdipine XL 60 MG TAB PO SCH (22:15)
--- NOTE | 2021-04-23 02:08 | Consultation ---
DATE OF CONSULTATION: 04/22/2021 CARDIOLOGY CONSULTATION REASON FOR CONSULTATION: Advice and opinion regarding shortness of breath. HISTORY OF PRESENT ILLNESS: The patient is a very pleasant 65-year-old -[place] female with history of hypertension, diabetes, COPD, obesity, diastolic heart failure, nicotine dependence, chronic pancreatitis, who presents with weakness, shortness of breath. No chest pain, cough, nausea or vomiting. She is seen on telemetry floor, states she feels much better. She did have one day of orthopnea. No fevers, chills, headache. Vitals; blood pressure on arrival, systolic was over 200. On tele, she is in sinus rhythm. No dysrhythmias. O2 sat is % on 2 liters. The patient was recently admitted on 04/13, had an echocardiogram which revealed a normal LV function, moderate to severe LVH, mild diastolic dysfunction, moderate AI, mild MR and mild pulmonary hypertension. The patient denies prescription drug abuse or alcohol abuse. PAST SURGICAL HISTORY: Include cholecystectomy, hysterectomy, total knee replacement. SOCIAL HISTORY: She is . FAMILY HISTORY: Diabetes and hypertension. ALLERGIES: ALLERGIC SULFA. INPATIENT AND OUTPATIENT MEDICATIONS: Reviewed. REVIEW OF SYSTEMS: As per HPI. PHYSICAL EXAMINATION: VITAL SIGNS: Blood pressure is currently is 150/60. She is afebrile. Tele reveals sinus rhythm. O2 sats . HEENT: Sclerae are anicteric . NECK: Supple. No masses. No JVD. CHEST: Decreased breath sounds, bibasilar. Overall, moderate air movement. CARDIOVASCULAR: Regular rhythm, S1 and S2. ABDOMEN: Soft, nontender, nondistended. Normoactive bowel sounds in 4 quadrants. No mass or bruits. EXTREMITIES: No cyanosis peripheral pulses. SKIN: Intact. No rashes. LABORATORY DATA: CBC was unremarkable. Potassium 4.2, creatinine 1.5. ProBNP is 3137. Coronavirus is negative on 04/14. ECG reveals a normal sinus rhythm, left atrial enlargement and LVH. At this point, patient likely with hypertensive heart disease and acute heart failure with preserved ejection fraction. Continue current medications. Blood pressure control, IV Lasix. Consider stress testing prior to discharge. The patient is currently clinically improved. We will follow along. Thank you for this consultation. TID: [id number] RECEIPT: [id number] ELDON/PRANAV/JESE
[2021-04-23] MEDS: oxyCODONE /ACETAMINOPHEN 5-325MG TAB PO PRN ×4 (04:25→23:27)
[2021-04-23] MEDS: FUROSEMIDE 20 MG/2 ML INJ IV SCH ×2 (05:56→17:17)
--- NOTE | 2021-04-23 08:43 | Discharge Summary ---
Providers - Providers Date of Admission: 04/21/21 12:04 Date of discharge: 04/23/21 Attending physician: EVA HERNANDEZ 04/21/21 16:57 Consult to Dietitian/Nutrition [CONS] Routine Physician Instructions: Reason For Exam: Reason for Consult: Poor oral intake 04/22/21 09:05 Consult to Physician [CONS] Routine Comment: Consulting Provider: CHAZ MCCARTHY Physician Instructions: Reason For Exam: Acute diastolic heart failure 04/23/21 08:16 Consult to Physician [CONS] Routine Comment: Consulting Provider: CHAZ MCCARTHY Physician Instructions: Reason For Exam: acute HF Primary care physician: FRANK ENGEL MD Hospitalization Reason for admission: Diastolic heart failure Condition: Stable Hospital course: 65 YO Female with Obesity, DM, COPD, HTN, Diastolic CHF, Nicotine Dependence, Chronic Pancreatitis who presented through the emergency room with complaints of generalized weakness, decreased exercise tolerance, shortness of breath, orthopnea, paroxysmal nocturnal dyspnea, dyspnea on exertion, as well as dyspnea at rest over the past 1 week with persistently worsening symptoms. The patient was admitted with acute on chronic diastolic heart failure, accelerated hypertension and acute hypoxic respiratory failure. On admission, patient was noted to have a systolic blood pressure in the 200s. Patient was treated with IV Lasix and resumed on her home antihypertensive medications with blood pressure controlled. The patient's respiratory status stabilized and at the time of discharge was noted to have saturations of 100% on room air. Therefore, patient is felt to have received maximal hospital benefit and will be discharged home. Dedicated discharge time 35 minutes Disposition: DC-01 TO HOME OR SELFCARE Final Discharge Diagnosis (Prints w/discharge instructions): Acute on chronic diastolic heart failure, acute hypoxic respiratory failure accelerated hypertension Core Measure Documentation - Palliative Care Palliative Care/ Comfort Measures: Not Applicable - Core Measures Any of the following diagnoses?: none Exam - Constitutional Vitals: Temp Pulse Resp BP Pulse Ox 98.4 F 77 18 149/67 100 04/23/21 07:58 04/23/21 07:58 04/23/21 07:58 04/23/21 07:58 04/23/21 07:58 General appearance: Present: no acute distress, well-nourished - EENT Eyes: Present: PERRL ENT: hearing intact, clear oral mucosa - Neck Neck: Present: supple, normal ROM - Respiratory Respiratory effort: normal Respiratory: bilateral: CTA - Cardiovascular Heart Sounds: Present: S1 & S2. Absent: rub, click - Extremities Extremities: pulses symmetrical, No edema Peripheral Pulses: within normal limits - Abdominal General gastrointestinal: Present: soft, non-tender, non-distended, normal bowel sounds Female genitourinary: Present: normal - Integumentary Integumentary: Present: clear, warm, dry - Musculoskeletal Musculoskeletal: gait normal, strength equal bilaterally - Psychiatric Psychiatric: appropriate mood/affect, intact judgment & insight - Neurologic Neurologic: CNII-XII intact, moves all extremities Plan Activity: advance as tolerated Weight Bearing Status: Weight Bear as Tolerated Diet: low fat, low cholesterol, low salt Special Instructions: restrict fluid intake to (1 L) Follow up with: FRANK ENGEL MD [Primary Care Provider] - 7 Days CHAZ MCCARTHY MD [Staff Physician] - 7 Days Prescriptions: hydroCHLOROthiazide [HCTZ] 25 mg PO QDAY #30 labetaloL [Labetalol 200mg TAB] 400 mg PO TID #90 tablet Multivitamin [One-Daily Multi-Vitamin] 1 each PO QDAY #30 Oxycodone HCl/Acetaminophen [Percocet 7.5/325 mg] 1 each PO Q6HR PRN #8 PRN Reason: Pain NIFEdipine XL [Procardia Xl] 60 mg PO BID #60 tablet Simvastatin 40 mg PO QHS #30 Montelukast [Singulair] 10 mg PO QHS #30 tablet Sertraline [Zoloft] 50 mg PO QDAY #30
[2021-04-23] MEDS: INSULIN LISPRO 100 UNIT/ML SUB-Q SCH ×4 (09:12→21:52)
[2021-04-23] MEDS: NICOTINE 7 MG/24 HR PATCH TD SCH (09:13)
[2021-04-23] MEDS: NIFEdipine XL 60 MG TAB PO SCH ×2 (09:13→21:50)
--- NOTE | 2021-04-23 11:17 | Progress Note ---
Assessment and Plan Patient is clinically improved. Echocardiogram from previous admission is reviewed with her again. Stress MPI in a.m. Discussed the importance of diet and lifestyle compliance with the patient. - Patient Problems (1) Acute diastolic heart failure Current Visit: Yes Status: Acute (2) Hypertensive urgency Current Visit: Yes Status: Acute (3) Nicotine dependence Current Visit: Yes Status: Acute Qualifiers: Nicotine product type: cigarettes Substance use status: in withdrawal Qualified Code(s): F17.213 - Nicotine dependence, cigarettes, with withdrawal (4) Obesity (BMI 30.0-34.9) Current Visit: Yes Status: Acute (5) Suspected COVID-19 virus infection Current Visit: No Status: Acute Subjective Date of service: 04/23/21 Interval history: sob better Objective Vital Signs Temp Pulse Resp BP BP Pulse Ox 04/23/21 09:13 149/67 95 04/23/21 07:58 98.4 F 77 18 149/67 100 04/23/21 03:50 98.2 F 76 18 131/63 97 04/22/21 23:02 97.4 F L 69 18 138/73 98 04/22/21 21:15 100 04/22/21 20:55 87 198/86 04/22/21 19:48 98.5 F 86 18 198/86 100 04/22/21 18:00 89 04/22/21 17:00 98 F 92 H 04/22/21 16:15 227/105 04/22/21 12:18 63 164/60 04/22/21 11:24 18 96
[2021-04-24] MEDS: FUROSEMIDE 20 MG/2 ML INJ IV SCH (05:53)
[2021-04-24] MEDS: oxyCODONE /ACETAMINOPHEN 5-325MG TAB PO PRN (07:28)
--- NOTE | 2021-04-24 07:36 | Progress Note ---
Assessment and Plan Assessment and plan: Acute diastolic heart failure Accelerated hypertension. Obesity Nicotine dependence 04/22/2021. Patient with echocardiogram completed approximately a week ago that revealed left ventricular systolic function normal. Left ventricular ejection fraction 55 to 60%. Mild diastolic dysfunction with moderate to severe concentric left ventricular hypertrophy. Continue home antihypertensive medications. Cardiology consultation. 04/23/2021. Cardiology with plans of Lexiscan stress test in a.m. Patient with O2 saturation 98% on room air. Continue GDMT for heart failure. Anticipate discharge tomorrow after stress test if negative. History Interval history: No new issues overnight. Hospitalist Physical - Constitutional Vitals: Temp Pulse Resp BP Pulse Ox 97.9 F 70 18 134/55 97 04/24/21 04:03 04/24/21 04:03 04/24/21 04:03 04/24/21 04:03 04/24/21 04:03 General appearance: Present: no acute distress, well-nourished - EENT Eyes: Present: PERRL, EOM intact ENT: hearing intact, clear oral mucosa, dentition normal - Neck Neck: Present: supple, normal ROM - Respiratory Respiratory effort: normal Respiratory: bilateral: CTA - Cardiovascular Rhythm: regular Heart Sounds: Present: S1 & S2. Absent: gallop, rub - Extremities Extremities: no ischemia, No edema, Full ROM - Abdominal General gastrointestinal: soft, non-tender, non-distended, normal bowel sounds - Integumentary Integumentary: Present: clear, warm, dry - Neurologic Neurologic: CNII-XII intact, moves all extremities HEART Score - HEART Score Troponin: Troponin T 0.011 ng/mL (0.00-0.029) 04/21/21 10:03 Results - Labs CBC & Chem 7: 04/21/21 10:03 04/22/21 04:31 Labs: Laboratory Last Values WBC 7.4 K/mm3 (4.5-11.0) 04/21/21 10:03 RBC 3.21 M/mm3 (3.65-5.03) L 04/21/21 10:03 Hgb 10.7 gm/dl (10.1-14.3) 04/21/21 10:03 Hct 30.9 % (30.3-42.9) 04/21/21 10:03 MCV 96 fl (79-97) 04/21/21 10:03 MCH 34 pg (28-32) H 04/21/21 10:03 MCHC 35 % (30-34) H 04/21/21 10:03 RDW 15.2 % (13.2-15.2) 04/21/21 10:03 Plt Count 373 K/mm3 (140-440) 04/21/21 10:03 Lymph % (Auto) 15.6 % (13.4-35.0) 04/21/21 10:03 [place] % (Auto) 7.4 % (0.0-7.3) H 04/21/21 10:03 Eos % (Auto) 4.2 % (0.0-4.3) 04/21/21 10:03 Baso % (Auto) 0.9 % (0.0-1.8) 04/21/21 10:03 Lymph # (Auto) 1.2 K/mm3 (1.2-5.4) 04/21/21 10:03 [place] # (Auto) 0.5 K/mm3 (0.0-0.8) 04/21/21 10:03 Eos # (Auto) 0.3 K/mm3 (0.0-0.4) 04/21/21 10:03 Baso # (Auto) 0.1 K/mm3 (0.0-0.1) 04/21/21 10:03 Seg Neutrophils % 71.9 % (40.0-70.0) H 04/21/21 10:03 Seg Neutrophils # 5.3 K/mm3 (1.8-7.7) 04/21/21 10:03 Sodium 138 mmol/L (137-145) 04/22/21 04:31 Potassium 4.2 mmol/L (3.6-5.0) 04/22/21 04:31 Chloride 100.5 mmol/L (98-107) 04/22/21 04:31 Carbon Dioxide 30 mmol/L (22-30) 04/22/21 04:31 Anion Gap 12 mmol/L 04/22/21 04:31 BUN 16 mg/dL (7-17) 04/22/21 04:31 Creatinine 1.5 mg/dL (0.6-1.2) H 04/22/21 04:31 Estimated GFR 42 ml/min 04/22/21 04:31 BUN/Creatinine Ratio 11 % 04/22/21 04:31 Glucose 126 mg/dL (65-100) H 04/22/21 04:31 POC Glucose 210 mg/dL (70-105) H 04/23/21 21:02 Calcium 8.4 mg/dL (8.4-10.2) 04/22/21 04:31 Total Bilirubin 0.50 mg/dL (0.1-1.2) 04/21/21 10:03 AST 34 units/L (5-40) 04/21/21 10:03 ALT 46 units/L (7-56) 04/21/21 10:03 Alkaline Phosphatase 78 units/L (35-129) 04/21/21 10:03 Troponin T 0.011 ng/mL (0.00-0.029) 04/21/21 10:03 NT-Pro-B Natriuret Pep 3137 pg/mL (0-900) H 04/21/21 10:03 Total Protein 6.4 g/dL (6.3-8.2) 04/21/21 10:03 Albumin 3.8 g/dL (3.9-5) L 04/21/21 10:03 Albumin/Globulin Ratio 1.5 % 04/21/21 10:03 Sheikh/IV: Voiding Method Toilet Active Medications - Current Medications Current Medications: Generic Name Dose Route Start Last Admin Trade Name Freq PRN Reason Stop Dose Admin Acetaminophen 650 mg 04/21/21 12:04 Acetaminophen 325 Mg Tab PO Q4H PRN Pain MILD(1-3)/Fever >100.5/QUEEN Albuterol 2.5 mg 04/21/21 12:04 Albuterol 2.5 Mg/3 Ml Nebu IH Q4HRT PRN Shortness Of Breath Furosemide 20 mg 04/21/21 18:00 04/24/21 05:53 Furosemide 20 Mg/2 Ml Inj IV 20 mg BID@0600,1800 ROSLYN Administration Hydralazine HCl 5 mg 04/22/21 06:28 04/22/21 12:18 Hydralazine 20 Mg/1 Ml Inj IV 5 mg Q6HR PRN Administration Hypertension Insulin Human Lispro 0 unit 04/21/21 22:00 04/23/21 21:52 Insulin Lispro 100 Unit/Ml SUB-Q 2 unit ACHS ROSLYN Administration Protocol Labetalol HCl 400 mg 04/22/21 20:00 04/23/21 21:50 Labetalol 200 Mg Tab PO 400 mg TID ROSLYN Administration Nicotine 7 mg 04/22/21 10:00 04/23/21 09:13 Nicotine 7 Mg/24 Hr Patch TD 7 mg QDAY ROSLYN Administration Nifedipine 60 mg 04/22/21 22:00 04/23/21 21:50 Nifedipine Xl 60 Mg Tab PO 60 mg BID ROSLYN Administration Ondansetron HCl 4 mg 04/21/21 12:04 Ondansetron 4 Mg/2 Ml Inj IV Q8H PRN Nausea And Vomiting Oxycodone/Acetaminophen 1 tab 04/21/21 18:09 04/24/21 07:28 Oxycodone /Acetaminophen 5-325mg Tab PO 1 tab Q6H PRN Administration Pain, Moderate (4-6) Sodium Chloride 10 ml 04/21/21 22:00 04/23/21 21:52 Sodium Chloride 0.9% 10 Ml Flush Syringe IV 10 ml BID ROSLYN Administration Sodium Chloride 10 ml 04/21/21 12:04 04/23/21 05:57 Sodium Chloride 0.9% 10 Ml Flush Syringe IV 10 ml PRN PRN Administration LINE FLUSH Nutrition/Malnutrition Assess - Dietary Evaluation Nutrition/Malnutrition Findings: Nutrition Notes Start: 04/22/21 12:35 Freq: Status: Active Protocol: Document 04/22/21 12:35 CW (Rec: 04/22/21 12:47 CW [id number]) Nutrition Notes Need for Assessment generated from: MD Order Initial or Follow up Assessment Current Diagnosis COPD,Diabetes,Heart Failure Other Pertinent Diagnosis nicotine dependence, chronic pancreatitis Current Diet Cardiac Labs/Tests Cr 1.5 BG 126 Pertinent Medications Humalog Lasix Zofran Height 5 ft 8 in Weight 92.8 kg [place] Body Weight (kg) 63.63 BMI 31.1 Weight change and time frame weight same as adm on 04/13 (92 .5kg) Weight Status Obese Subjective/Other Information MD consult for poor oral intake. Pt sonsuming 100% of meals per chart since admission on 04/13. Weight stable since admission. Kulwant score of 20. #1 Nutrition Diagnosis No nutrition diagnosis at this time Nutrition Intervention Change Diet Order: Continue curent diet as ordered Add Supplement/Snack (indicate name/kcal Glucerna QD /protein ) Provides kCal: 220 Provides Protein (gm) 10 Goal #1 Continue to meet at least 75% of EER via PO Follow-Up By: 04/26/21 Additional Comments F/U for stable intakes and ONS need
[2021-04-24] MEDS ORDERED: REGADENOSON 0.4 MG/5 ML INJ IV ONE ×2 (07:41→11:00)
[2021-04-24] MEDS: INSULIN LISPRO 100 UNIT/ML SUB-Q SCH ×2 (08:05→12:02)
[2021-04-24] MEDS: NIFEdipine XL 60 MG TAB PO SCH (11:39)
[2021-04-24 11:40] VITALS: BP 131/73
[2021-04-24] MEDS: NICOTINE 7 MG/24 HR PATCH TD SCH (11:52)
[2021-04-24] MEDS ORDERED: KETOROLAC 30 MG/1 ML INJ IV SCH (12:00)
--- NOTE | 2021-04-24 12:52 | Nuclear Medicine Report ---
APPROVED REPORT Exam: Nuclear Stress Test BMI: 0 Stress Test Details Stress Test: Pharmacologic stress testing performed using 0.4 mg of regadenoson per 5 mL given IV over 10 seconds. HR Resting HR: 69 bpm Max HR Achieved: 91 bpm Max Heart Rate (APMHR): 155 bpm Target HR (85% APMHR): 131 bpm % of APMHR: 58 Recovery HR: 68 bpm HR response to stress: Normal HR response to stress BP Resting BP: 129/61 mmHg Max BP: 164/75 mmHg Recovery BP: 139/68 mmHg BP response to stress: Normal blood pressure response to stress. ECG Resting ECG: Sinus Rhythm Stress ECG: Sinus Rhythm Clinical Reason for Termination: Completed protocol NM EXAM: Myocardial Perfusion REST/STRESS Imaging Protocol: Rest Tc-99m/Stress Tc-99m 1 day Resting Data Rest SPECT myocardial perfusion imaging was performed in supine position 45 minutes following the intravenous injection of 10 mCi of Tc-99m Myoview. Time of rest injection: 0900 Date: 04/24/2021 Pharmacologic Stress Pharmacologic stress test was performed by injecting Regadenoson 0.4 mg IV push followed by the intravenous injection of 28 mCi of Tc-99m Myoview. Time of stress injection: 1035 Date: 04/24/2021 Gated Stress SPECT was performed 30 minutes after stress injection. Study Data TID = 0.98. Perfusion Nuclear Conclusion ECG Findings: negative for ischemia Clinical Findings: negative for ischemia Nuclear Findings: negative for ischemia Exercise Capacity: not assessed Left Ventricular Function: abnormal Normal study. No scintigraphic evidence for myocardial ischemia or scar. mild lv dsyfunction ef 45%, correlate with echo for lv function
--- NOTE | 2021-04-24 12:52 | Progress Note ---
Assessment and Plan Chest Pain in setting of hypertrophic cardiomyopathy and heart failure with preserved ejection fraction * Chest pain is currently resolved, no cardiac symptoms. Troponin is negative x1. ECG shows no acute ischemic changes * Echocardiogram reviewed (echocardiogram reviewed (04/13/2021): LVEF is 55 to 60% LV is normal size. LV SF is normal. Moderate to Severe LVH. Mild diastolic dysfunction. RV SF is normal. LA mildly dilated. Moderate AR. Moderate MR. RVSP is 37 mmHg. * Lexiscan MPI stress test (04/24/2021): Is negative for reversible ischemia Hypertension * Optimize antihypertensive regimen: Recommend nifedipine XL 60 mg twice daily, labetalol 400 twice daily. Discontinue Lasix. Initiate hydrochlorothiazide 12.5 mg daily DVT Prophylaxis Patient may discharge from cardiology standpoint. Will follow on as-needed basis Patient should follow-up with [facility] cardiology within 1 to 2 weeks of discharge. Patient may discharge from cardiac standpoint This patient was seen in conjunction with Dr Solis who agrees with this assessment and plan of care Subjective Date of service: 04/24/21 Principal diagnosis: Chest Pain Interval history: Patient resting comfortably in bed. No shortness of breath or chest pain overnight. Telemetry reviewed: Sinus rhythm 63. No events Objective Last Vital Signs Temp 97.8 F 04/24/21 07:28 Pulse 75 04/24/21 13:27 Resp 18 04/24/21 07:28 BP 131/73 04/24/21 13:27 Pulse Ox 98 04/24/21 10:00 - Physical Examination General: Appears Well HEENT: Positive: PERRL, Normocephaly, Mucus Membranes Moist Neck: Positive: neck supple, trachea midline Cardiac: Positive: Reg Rate and Rhythm, S1/S2 Lungs: Positive: Normal Exam, Normal Breath Sounds Neuro: Positive: Grossly Intact Abdomen: Positive: Unremarkable, Soft Skin: Negative: Rash, Wound Musculoskeletal: No Pain Extremities: Present: upper extr. pulses, lower extr. pulses. Absent: edema - Imaging and Cardiology EKG: report reviewed, image reviewed Nuclear stress test: report reviewed (Lexiscan MPI stress test (04/24/2021): Is negative for reversible ischemia) Echo: report reviewed (Echocardiogram reviewed (echocardiogram reviewed (04/13/2021): LVEF is 55 to 60% LV is normal size. LV SF is normal. Severe LVH. Mild diastolic dysfunction. RV SF is normal. LA mildly dilated. Moderate AR. Moderate MR. RVSP is 37 mmHg.)
[2021-04-25] MEDS ORDERED: UBIDECARENONE 200 MG PO SCH (10:00)
== END 2021-04-24 14:09 | disposition home or self-care (01) ==
LOC: ED 09:31 → 4A 12:04
PROVIDERS: ADMIT Internal Medicine; ATTEND Hospitalist
DX: I16.0 Hypertensive urgency (principal); I11.0 Hypertensive heart disease with heart failure; I50.31 Acute diastolic (congestive) heart failure; J44.9 Chronic obstructive pulmonary disease, unspecified; E66.9 Obesity, unspecified; K86.1 Other chronic pancreatitis; F17.213 Nicotine dependence, cigarettes, with withdrawal; Z90.49 Acquired absence of other specified parts of digestive tract; Z90.710 Acquired absence of both cervix and uterus; Z96.659 Presence of unspecified artificial knee joint; Z68.31 Body mass index [BMI] 31.0-31.9, adult
CPT/HCPCS: 36415; 70450; 71045; 78452; 80048; 80053; 82962; 83880; 84484; 85025; 87641; 93005; 93017; 96374; 96375; 96376; 99285; 99406; A9502; G0378; J0360; J1885; J1940; J2270; J2405; J1815